=== PATIENT | female | born 1960 | race Caucasian/White ===

== ENCOUNTER → 2019-09-06 12:50 | Outpatient (CLI) | payer OTHER, SELFPAY ==
[2019-09-06 12:45] VITALS: BMI 25.6
--- NOTE | 2019-09-06 13:04 | RAD_ITS ---
STUDY: X-RAY - RIGHT HAND REASON FOR EXAM: Female, 59 years old. RIGHT HAND PAIN. PT STATES SHE IS UNABLE TO STRAIGHTEN OUT MIDDLE FINGER WITHOUT PAIN TECHNIQUE: 3 view(s) of the hand. COMPARISON: None. FINDINGS: Possible diffuse osteopenia otherwise normal radiocarpal articulation. Normal distal radioulnar joint. Normal visualized carpal bones. Normal carpal articulations Normal carpometacarpal articulation of the thumb. Normal second through fifth carpometacarpal joints. Normal metacarpi. Normal metacarpophalangeal joint of the thumb. Normal interphalangeal joint of the thumb. Normal proximal and distal phalanges of the thumb. Normal metacarpophalangeal joints of the second through fifth fingers. Mild narrowing of the distal interphalangeal joint second through fifth digits which may indicate early osteoarthritis Normal phalanges of the second through fifth fingers. The soft tissue structures are unremarkable. RAD/Hand Min 3 Views IMPRESSION: Possible early osteoarthritis as described otherwise no acute fracture or subluxation. Electronically Signed: Marii Hilario MD at 3:57 EST , Service support ,
== END ==
PROVIDERS: PCP Family Medicine; Referring Provider Physician Assistant; Visit Provider Physician Assistant
DX: M65.331 Trigger finger, right middle finger (principal)
CPT/HCPCS: 73130

== ENCOUNTER → 2020-05-01 09:35 | Outpatient (CLI) | payer OTHER, SELFPAY ==
[2019-09-06 12:45] VITALS: BMI 25.6
== END ==
PROVIDERS: PCP Family Medicine; Referring Provider Family Medicine; Visit Provider Family Medicine
DX: R05 Cough (principal)
CPT/HCPCS: 87635; C9803; U0003

== ENCOUNTER 2023-11-10 16:21 | Emergency (ER) | payer OTHER, SELFPAY ==
[2023-11-10 16:22] VITALS: BP 113/97; PULSE 99; RESP 20; TEMP 36.2; O2SAT 98; BMI 25.4
--- NOTE | 2023-11-10 17:01 | EX.ED.DYSGE1 ---
HPI History of Present Illness Chief Complaint: General Illness Narrative Narrative: 63-year-old female presenting with nausea, vomiting, epigastric pain. She also complains of earache and congestion. She has had a cough. Something this is all been going on for about 2 weeks. 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 She has not been able to hold stuff down and sometimes and other times been able to eat and drink. She has not checked her temperature because she does not have a thermometer. She denies chest pain or shortness of breath but does admit to cough again and congestion. Denies diarrhea. No black or bloody stools. No black or bloody emesis. Patient brought her friend with her who states that she is an alcoholic. The patient only admits to 1 cup of tequila per day. She states she cannot tell me how long she has been drinking this. She does report that she can quit when she wants and is quit several times without any withdrawal symptoms. No history of pancreatitis. She herself does not think she has pancreatitis or anything alcohol related she thinks she has something viral. [facility] Medical History HTN (hypertension) Hypothyroidism Home Medications aspirin 81 mg chewable tablet 81 mg PO DAILY@0800 05/21/16 [History Last Taken 06/26/16 06:00] hydrochlorothiazide 25 mg tablet 25 mg PO DAILY 05/21/16 [History Last Taken 05/21/16] levothyroxine 75 mcg tablet 75 mcg PO DAILY 05/21/16 [History Last Taken 05/21/16] metoprolol tartrate 25 mg tablet 12.5 mg PO BID 05/21/16 [History Last Taken 05/20/16] cholecalciferol (vitamin D3) 25 mcg (1,000 unit) chewable tablet 1,000 unit PO DAILY 06/21/16 [History Last Taken Unknown] omega-3 fatty acids 1,000 mg capsule (Fish Oil Concentrate) 1,000 mg PO DAILY 09/06/19 [History Last Taken Unknown] omeprazole 40 mg capsule,delayed release 40 mg PO BID #60 caps 11/10/23 [Rx Last Taken Unknown] ondansetron 4 mg disintegrating tablet 4 mg PO Q8H PRN PRN Nausea #20 tabs 11/10/23 [Rx Last Taken Unknown] Allergy/AdvReac Type Severity Reaction Status Date / Time amoxicillin [From Augmentin] Allergy Rash Verified 11/10/23 16:22 clavulanic acid Allergy Rash Verified 11/10/23 16:22 [From Augmentin] Sulfa (Sulfonamide Allergy Rash Verified 11/10/23 16:22 Antibiotics) Social History Smoking Status: Current every day smoker tobacco type: cigarettes ROS ROS ED Constitutional Constitutional ED: Reports chills; Denies fever(s) or sweats Eyes Eyes: Denies blurry vision or change in vision ENT ENT ED: Reports ear pain bilateral; Denies sore throat Cardiovascular Cardiovascular: Denies chest pain, palpitations or racing heartbeat Respiratory/Chest Respiratory/Chest: Reports cough; Denies dyspnea or sputum Gastrointestinal Gastrointestinal: Reports abdominal pain, nausea and vomiting; Denies constipation or diarrhea Genitourinary Genitourinary ED: Denies dysuria, hematuria or urinary frequency Musculoskeletal Musculoskeletal: Reports myalgias; Denies arthralgias or neck pain Integumentary Denies abscess, Abrasions or rash Neurologic Neurologic: Denies headache(s), paresthesias or weakness Psychiatric Psychiatric: Denies anxiety, depression, suicidal ideation or suicidal thoughts Endocrine Endocrinology: Denies polydipsia or polyuria EXAM Physical Exam Const Vital Signs: 11/10/23 16:22 11/10/23 17:41 Temperature 97.2 F L Temperature Source Temporal Pulse Rate 99 Respiratory Rate 20 H Respiratory Pattern Normal Blood Pressure 113/97 H Blood Pressure Mean 102 Pulse Ox 98 Oxygen Delivery Method Room Air Positive well nourished General Appearance ED: NAD; Negative for pallor HEENT Reports moist mucous membranes Eyes PERRL and EOMs intact bilaterally General Eye ED: Negative for pale conjunctiva Chest Wall inspection of chest normal and palpation of chest normal Resp normal respiratory effort and clear to auscultation bilaterally Cardio regular rate GI Palpation: tender epigastric Neuro oriented x3 and CN's II-XII intact bilaterally Motor Exam: strength 5/5 throughout Psych mental status grossly normal Skin no rashes or lesions noted General Skin Exam: Negative for jaundice or pallor MDM MDM MDM Narrative Medical decision making narrative: Patient presenting with nausea, vomiting. She states that this is an ongoing issue. She reports that she does drink daily but only about a cup of tequila. Differential includes alcohol abuse, gastritis, alcohol withdrawal, dehydration, electrolyte abnormalities, viral syndrome, pancreatitis. CBC was obtained to assess for white blood cell count, hemoglobin, platelets. BMP to assess renal function, electrolytes. LFTs to assess liver function. Lipase to assess for pancreatitis. Urinalysis to assess for UTI. COVID, influenza, RSV are obtained. Patient given IV fluids after IV line was established. Patient given Zofran, Toradol, GI cocktail. On reevaluation she is feeling better. Her lab work shows that she has a 7.1 white count. 13.1 hemoglobin. Platelets are normal. She does have normal renal function however potassium is slightly low at 3.0. LFTs show AST of 147, ALT 66, alkaline phosphatase 126 and lipase is 87 which is minimally elevated. I suspect this is due to alcohol use. Patient's EtOH is 270 today. I discussed this with her and this is likely more than a couple of tequila and she admitted that she does drink more. She does not want detox today and her sister is in the room and we discussed this at length. I did warn her that if the excessive alcohol abuse continues gastric issues and/or pancreatitis. She was willing to take some outpatient services paperwork. I did tell her she could return at any time for treatment of EtOH withdrawal and/or detox. Patient will be started on omeprazole for home. She is also given some Zofran. Return precautions discussed. Impression: 1. Alcohol abuse 2. Gastritis 3. Alcoholic hepatitis 4. Nausea/vomiting 5. Hypokalemia Lab Data Attestation: I reviewed the patient's lab results. Labs: Laboratory Results - last 24 hr 11/10/23 17:30 WBC 7.1 RBC 4.02 L Hgb 13.1 Hct 39.7 MCV 98.8 MCH 32.6 H MCHC 33.0 RDW Std Deviation 74.4 H RDW Coeff of Gucci 20.5 H Plt Count 187 MPV 11.4 Immature Gran % (Auto) 0.400 Neut % (Auto) 66.8 Lymph % (Auto) 22.9 [place] % (Auto) 6.7 Eos % (Auto) 2.2 Baso % (Auto) 1.0 Absolute Neuts (auto) 4.8 Absolute Lymphs (auto) 1.63 Nucleated RBC % 0 Differential Comment SCANNED Sodium 138 Potassium 3.0 L Chloride 102 Carbon Dioxide 28.0 Anion Gap 8 BUN 5 L Creatinine 0.61 Estim Creat Clear Calc 84.49 Est GFR (MDRD) Af Amer 127 Est GFR (MDRD) Non-Af 105 BUN/Creatinine Ratio 8.2 L Glucose 116 H Calcium 9.2 Total Bilirubin 0.40 Direct Bilirubin 0.20 AST 147 H ALT 66 H Alkaline Phosphatase 126 H Total Protein 8.4 H Albumin 4.3 Globulin 4.1 Lipase 87 H Urine Color Yellow Urine Clarity Sl. Cloudy Urine pH 7.0 Ur Specific [place] 1.005 Urine Protein Negative Urine Glucose (UA) Normal Urine Ketones Negative Urine Occult Blood Negative Urine Nitrite Negative Urine Bilirubin Negative Urine Urobilinogen Normal Ur Leukocyte Esterase Negative Urine RBC 0 SEEN Urine WBC 0 SEEN Ur Squamous Epith Cells 0-5 SEEN Urine Bacteria 0 SEEN Urine Mucus 0 SEEN Ethyl Alcohol 270.0 Discharge Plan Triage Chief Complaint: General Illness ED Provider: Uriel Harvey Dx/Rx/DC Orders Instructions: ED Alcohol Intoxication, ED Gastritis (Adult), ED Vomiting (Adult) Prescriptions: New omeprazole 40 mg capsule,delayed release(DR/EC) 40 mg PO BID Qty: 60 0RF ondansetron 4 mg tablet,disintegrating 4 mg PO Q8H PRN PRN (Reason: Nausea) Qty: 20 0RF No Action omega-3 fatty acids [Fish Oil Concentrate] 1,000 mg capsule 1,000 mg PO DAILY levothyroxine 75 MCG tablet 75 mcg PO DAILY Patient Comments: THYROID aspirin 81 MG tablet,chewable 81 mg PO DAILY@0800 hydrochlorothiazide 25 MG tablet 25 mg PO DAILY metoprolol tartrate 25 MG tablet 12.5 mg PO BID Patient Comments: BP cholecalciferol (vitamin D3) 1,000 UNIT tablet,chewable 1,000 unit PO DAILY Primary Care Provider: Shaniqua Jacob Referrals: Shaniqua Jacob DO [Primary Care Provider] - Disposition Disposition: Home, Self Care Discharge Date/Time: 11/10/23 18:46
[2023-11-10] MEDS: Mag Hydrox/Al Hydrox/Simeth 30 ML UDC PO (17:36)
[2023-11-10] MEDS: 0.9% Normal Saline (1000mL) 1,000 ML 1000 ML IV (17:36)
[2023-11-10] MEDS: Ondansetron 4 MG/2 ML Vial IV (17:36)
[2023-11-10] MEDS: Ketorolac 15 MG/ML Vial IV (17:36)
[2023-11-10 17:39] LABS: Bacteria 0 SEEN /hpf (None Seen); Mucous, Urine 0 SEEN /hpf (<or=2+); Red Blood Cells-Urine 0 SEEN /hpf (0-5); White Blood Cells 0 SEEN /hpf (0-5)
[2023-11-10 17:47] LABS: Color, Urine Yellow (Yellow); Glucose, Dipstick Normal (Normal); Ketone-Dipstick Negative (Negative); Leukocyte Esterase-Dipstick Negative /ul (Negative); Nitrite-Dipstick Negative (Negative); Occult Blood-Urine Negative /ul (Negative); Protein-Dipstick Negative (Negative); Specific Gravity, Urine 1.005 (1.002-1.030); Urine Bilirubin Dipstick Negative (Negative); Urine Clarity Sl. Cloudy (Clear); Urine Urobilinogen Normal (Normal)
[2023-11-10 17:56] LABS: Absolute Lymphocyte Count 1.63 X10^3/uL (0.83-4.51); Absolute Neutrophil Count 4.8 X10^3/uL (2.0-7.7); Basophil# 0.07 X10^3/uL; Eosinophil# 0.16 X10^3/uL; Eosinophils% 2.2 % (0-5); Hematocrit 39.7 % (37-47); Hemoglobin 13.1 g/dL (12.0-15.0); Lymphocyte # 1.63 X10^3/ul (0.83-4.51); Lymphocyte % 22.9 % (19-41); Mean Corpuscular Hgb 32.6 pg (27.0-32.0); Mean Corpuscular Volume 98.8 fL (81-99); Mean Platelet Vol. 11.4 fl (6.2-12.0); Monocyte# 0.48 X10^3/uL; Monocyte% 6.7 % (0-10); NRBC Flagged by Analyzer 0 % (0-5); Neutrophil # 4.76 X10^3/uL (2.7-7.7); Neutrophil % 66.8 % (47-70); POSITIVE MORPHOLOGY YES; Platelet Count 187 K/mm3 (150-450); RBC Distribution Width CV 20.5 % (11.6-14.6); RBC Distribution Width SD 74.4 fl (35.1-43.9); Red Blood Count 4.02 M/mm3 (4.2-5.4); White Blood Count 7.1 K/mm3 (4.4-11.0)
[2023-11-10 17:58] LABS: Squamous Epithelial Cells - UA 0-5 SEEN /hpf (5-10)
[2023-11-10 18:00] LABS: Differential Indicated SCAN CRITERIA MET
[2023-11-10 18:06] LABS: AST(SGOT) 147 U/L (15-37); Alanine Aminotransfer ALT/SGPT 66 U/L (13-56); Albumin, Serum 4.3 g/dL (3.2-5.0); Alkaline Phosphatase 126 U/L (45-117); Anion Gap 8 (5-15); BUN 5 mg/dL (7-18); BUN/Creat Ratio 8.2 RATIO (10-20); Calcium,Total 9.2 mg/dL (8.5-10.1); Chloride 102 mmol/L (98-107); Creatinine, Serum 0.61 mg/dL (0.55-1.02); EST Glomerular Filtration Rate 105 mL/min (>60); Est Glom Filt Rate - Afr Amer 127 mL/min (>60); Estimated Creatinine Clearance 84.49 ml/min; Globulin 4.1 g/dL (2.2-4.2); Glucose 116 mg/dL (74-106); Lipase 87 U/L (13-75); Protein, Total 8.4 g/dL (6.4-8.2); Sodium Level 138 mmol/L (136-145)
[2023-11-10 18:26] LABS: Differential Comment SCANNED
== END 2023-11-10 18:46 | disposition home or self-care (01) ==
PROVIDERS: Emergency Provider Student in an Organized Health Care Education/Training Program; PCP Family Medicine; Visit Provider Student in an Organized Health Care Education/Training Program
DX: F10.10 Alcohol abuse, uncomplicated (principal); K70.10 Alcoholic hepatitis without ascites; R11.2 Nausea with vomiting, unspecified; E87.6 Hypokalemia; F17.210 Nicotine dependence, cigarettes, uncomplicated; K29.70 Gastritis, unspecified, without bleeding; E03.9 Hypothyroidism, unspecified; Z79.899 Other long term (current) drug therapy; Y90.8 Blood alcohol level of 240 mg/100 ml or more
CPT/HCPCS: 80048; 80076; 80320; 81001; 83690; 85025; 87631; 96361; 96374; 96375; 99283; J7030; A4216; G0480; J2405

== ENCOUNTER 2023-11-11 09:01 | Inpatient (IN) | payer OTHER, SELFPAY ==
[2023-11-11] VITALS (8 sets, daily range): BP systolic 136–175; BP diastolic 80–111; PULSE 70–99; RESP 16–18; TEMP 36.2–36.8; O2SAT 95–99; BMI 28.9; BMI 25.3
--- NOTE | 2023-11-11 09:06 | EDS_ITS ---
HPI History of Present Illness Chief Complaint: Substance Abuse Informant: patient Onset/Context/Timing Onset: Today Context: Gradual Onset Timing: Continuous Associated Symptoms Associated Symptoms: Positive for fever*; Negative for vomiting*, diarrhea*, rash*, seizure, tremor, palpatations, change in mental status, suicidal ideation or homicidal ideation Narrative Narrative: Patient presents requesting detox from alcohol. Patient states she drinks approximately 1 cup of tequila per day. Patient states her last drink was approximately 2 AM today. Patient states she has been having some subjective fevers and chills that have been intermittent. Patient denies any nausea or vomiting. Patient denies any seizures or tremors. Patient denies any suicidal or homicidal ideations. Patient denies any prior detox. [facility] Medical History (Updated 11/11/23 @ 10:[address] Arden Balbuena, ) Alcohol abuse HTN (hypertension) Hypothyroidism Home Medications aspirin 81 mg chewable tablet 81 mg PO DAILY@0800 05/21/16 [History Last Taken 06/26/16 06:00] hydrochlorothiazide 25 mg tablet 25 mg PO DAILY 05/21/16 [History Last Taken 11/10/23] levothyroxine 75 mcg tablet 75 mcg PO DAILY thyroid 05/21/16 [History Last Taken 11/10/23] metoprolol tartrate 25 mg tablet 12.5 mg PO BID 05/21/16 [History Last Taken 11/10/23] cholecalciferol (vitamin D3) 25 mcg (1,000 unit) chewable tablet 1,000 unit PO DAILY 06/21/16 [History Last Taken Unknown] omega-3 fatty acids 1,000 mg capsule (Fish Oil Concentrate) 1,000 mg PO DAILY 09/06/19 [History Last Taken Unknown] albuterol sulfate 90 mcg/actuation aerosol inhaler 2 puff inhalation Q6H PRN shortness of breath or wheezing 11/11/23 [History Last Taken Unknown] omeprazole 40 mg capsule,delayed release 40 mg PO DAILY 11/11/23 [History Last Taken Unknown] Allergy/AdvReac Type Severity Reaction Status Date / Time amoxicillin [From Augmentin] Allergy Rash Verified 11/11/23 09:05 clavulanic acid Allergy Rash Verified 11/11/23 09:05 [From Augmentin] Sulfa (Sulfonamide Allergy Rash Verified 11/11/23 09:05 Antibiotics) Surgical History (Updated 11/11/23 @ 09:[address] Arden Balbuena DO) Hx of partial thyroidectomy Social History Smoking Status: Current every day smoker tobacco type: cigarettes ROS ROS ED Constitutional Constitutional ED: Reports chills, fever(s) and subjective Eyes Eyes: Denies blurry vision or change in vision ENT ENT ED: Reports rhinorrhea and sore throat Cardiovascular Cardiovascular: Denies chest pain or palpitations Respiratory/Chest Respiratory/Chest: Reports cough; Denies dyspnea Gastrointestinal Gastrointestinal: Denies nausea or vomiting Genitourinary Genitourinary ED: Denies dysuria or hematuria Musculoskeletal Musculoskeletal: Denies back pain or neck pain Integumentary Denies abscess or rash Neurologic Neurologic: Reports headache(s); Denies weakness Allergic/Immunologic Allergic/Immunologic ED: Denies mouth swelling or urticaria EXAM Physical Exam Const Vital Signs: 11/11/23 09:02 11/11/23 10:12 11/11/23 10:38 Temperature 98.1 F 98.3 F 97.1 F L Temperature Source Temporal Oral Pulse Rate 99 76 76 Respiratory Rate 16 16 16 Blood Pressure 175/111 H 136/82 H 140/80 H Blood Pressure Mean 132 100 100 Pulse Ox 97 96 95 Oxygen Delivery Method Room Air Room Air Positive well nourished and well developed General Appearance ED: well developed and NAD HEENT Reports moist mucous membranes Neck supple and no JVD Resp normal respiratory effort and clear to auscultation bilaterally Cardio regular rate and regular rhythm GI soft to palpation and non-distended Palpation: tender epigastric, LLQ, RLQ, LUQ, RUQ, periumbilical and suprapubic and hepatomegaly; Negative for guarding Neuro oriented x3, CN's II-XII intact bilaterally and no sensory deficits noted Reyna Coma Scale: document GCS findings Spontaneous Obeys Commands Oriented 15 Sensorium / Orientation: alert Speech: speech normal Motor Exam: strength 5/5 throughout Psych mental status grossly normal and thought process normal MDM MDM MDM Narrative Medical decision making narrative: Medical screening labs will be obtained. CBC will be obtained to assess for leukocytosis and anemia. Comprehensive metabolic profile will be obtained to assess for hepatic function, renal function, and electrolyte abnormality. Lipase will be obtained to assess for pancreatitis. Serum alcohol level will be obtained to assess for alcohol intoxication. Urine tox screen will be obtained to assess for substance abuse. Lab Data Attestation: I reviewed the patient's lab results. Lab results narrative: CBC was reviewed and was essentially within normal limits. Comprehensive metabolic profile was reviewed. Potassium was slightly low at 3.3. AST was slightly elevated at 166 and ALT was slightly elevated at 65. Lipase was reviewed and was normal at 55. Urine tox screen was reviewed and was negative. Serum alcohol level was reviewed and was elevated at 210. Labs: Laboratory Results - last 24 hr 11/11/23 11/11/23 09:20 09:30 WBC 7.3 RBC 3.68 L Hgb 12.0 Hct 36.6 L MCV 99.5 H MCH 32.6 H MCHC 32.8 RDW Std Deviation 74.3 H RDW Coeff of Gucci 20.4 H Plt Count 169 MPV 11.0 Immature Gran % (Auto) 0.300 Neut % (Auto) 72.8 H Lymph % (Auto) 17.5 L [place] % (Auto) 6.4 Eos % (Auto) 2.0 Baso % (Auto) 1.0 Absolute Neuts (auto) 5.3 Absolute Lymphs (auto) 1.28 Nucleated RBC % 0 Differential Comment SCANNED Anisocytosis 2+ Microcytosis 1+ Macrocytosis 1+ Sodium 139 Potassium 3.3 L Chloride 106 Carbon Dioxide 24.0 Anion Gap 9 BUN 3 L Creatinine 0.54 L Estim Creat Clear Calc 101.43 Est GFR (MDRD) Af Amer 147 Est GFR (MDRD) Non-Af 121 BUN/Creatinine Ratio 5.5 L Glucose 96 Calcium 8.8 Total Bilirubin 0.60 AST 166 H ALT 65 H Alkaline Phosphatase 104 Total Protein 7.6 Albumin 4.0 Globulin 3.6 Albumin/Globulin Ratio 1.1 Lipase 55 Urine Opiates Screen NEGATIVE Urine Methadone Screen NEGATIVE Ur Barbiturates Screen NEGATIVE Ur Phencyclidine Scrn NEGATIVE Ur Amphetamines Screen NEGATIVE MDMA (Ecstasy) Screen NEGATIVE U Benzodiazepines Scrn NEGATIVE Urine Cocaine Screen NEGATIVE U Cannabinoids Screen NEGATIVE Ur Drug Screen Comment Ethyl Alcohol 210.0 Management Discussion w/another healthcare provider: Hospitalist Treatment and Re-Evaluation Narrative: IV line was established. Case was discussed with the hospitalist. She will admit the patient to her service. Patient understood and was agreeable with the plan. All questions were answered. Discharge Plan Triage Chief Complaint: Substance Abuse ED Provider: Arden Balbuena Dx/Rx/DC Orders Clinical Impression: Desire for detoxification, Alcohol withdrawal Prescriptions: No Action omega-3 fatty acids [Fish Oil Concentrate] 1,000 mg capsule 1,000 mg PO DAILY levothyroxine 75 MCG tablet 75 mcg PO DAILY aspirin 81 MG tablet,chewable 81 mg PO DAILY@0800 Patient Comments: pt forgets to take hydrochlorothiazide 25 MG tablet 25 mg PO DAILY metoprolol tartrate 25 MG tablet 12.5 mg PO BID cholecalciferol (vitamin D3) 1,000 UNIT tablet,chewable 1,000 unit PO DAILY albuterol sulfate 90 mcg/actuation HFA aerosol inhaler 2 puff INHALATION Q6H PRN (Reason: shortness of breath or wheezing) omeprazole 40 mg capsule,delayed release(DR/EC) 40 mg PO DAILY Patient Comments: pt takes occasionally Primary Care Provider: Shaniqua Jacob Referrals: Shaniqua Jacob DO [Primary Care Provider] - Disposition Disposition: Acute Care Hospital [facility]
[2023-11-11 09:33] LABS: Absolute Lymphocyte Count 1.28 X10^3/uL (0.83-4.51); Absolute Neutrophil Count 5.3 X10^3/uL (2.0-7.7); Basophil# 0.07 X10^3/uL; Eosinophil# 0.15 X10^3/uL; Hematocrit 36.6 % (37-47); Lymphocyte # 1.28 X10^3/ul (0.83-4.51); Lymphocyte % 17.5 % (19-41); Mean Corp Hgb Conc 32.8 g/dL (32-36); Mean Corpuscular Hgb 32.6 pg (27.0-32.0); Mean Corpuscular Volume 99.5 fL (81-99); Monocyte# 0.47 X10^3/uL; Monocyte% 6.4 % (0-10); NRBC Flagged by Analyzer 0 % (0-5); Neutrophil # 5.34 X10^3/uL (2.7-7.7); Neutrophil % 72.8 % (47-70); POSITIVE MORPHOLOGY YES; Platelet Count 169 K/mm3 (150-450); RBC Distribution Width CV 20.4 % (11.6-14.6); RBC Distribution Width SD 74.3 fl (35.1-43.9); Red Blood Count 3.68 M/mm3 (4.2-5.4); White Blood Count 7.3 K/mm3 (4.4-11.0)
[2023-11-11 09:51] LABS: ALB/GLOB Ratio 1.1 RATIO (0.9-2.4); AST(SGOT) 166 U/L (15-37); Alanine Aminotransfer ALT/SGPT 65 U/L (13-56); Alkaline Phosphatase 104 U/L (45-117); Anion Gap 9 (5-15); BUN 3 mg/dL (7-18); BUN/Creat Ratio 5.5 RATIO (10-20); Calcium,Total 8.8 mg/dL (8.5-10.1); Chloride 106 mmol/L (98-107); Creatinine, Serum 0.54 mg/dL (0.55-1.02); EST Glomerular Filtration Rate 121 mL/min (>60); Est Glom Filt Rate - Afr Amer 147 mL/min (>60); Estimated Creatinine Clearance 101.43 ml/min; Globulin 3.6 g/dL (2.2-4.2); Glucose 96 mg/dL (74-106); Lipase 55 U/L (13-75); Potassium 3.3 mmol/L (3.5-5.1); Protein, Total 7.6 g/dL (6.4-8.2); Sodium Level 139 mmol/L (136-145)
[2023-11-11 10:21] LABS: Amphetamine Urine VISTA NEGATIVE (<1000 ng/mL); Barbiturate Urine VISTA NEGATIVE (< 200 ng/mL); Benzodiazepine Urine VISTA NEGATIVE (< 200 ng/mL); Cocaine Urine VISTA NEGATIVE (< 300 ng/mL); Ecstacy Urine VISTA NEGATIVE (< 500 ng/mL); Methadone Urine VISTA NEGATIVE (< 300 ng/mL); PCP Urine VISTA NEGATIVE (< 25 ng/mL); THC Urine VISTA NEGATIVE (< 50 ng/mL); Vista UDS pH Range 6
[2023-11-11 10:28] LABS: Differential Indicated SCAN CRITERIA MET
[2023-11-11 10:30] LABS: Anisocytosis 2+; Differential Comment SCANNED; Macrocytosis 1+; Microcytosis 1+
--- NOTE | 2023-11-11 10:40 | PCM.HP.STD ---
HPI - General General Date of Admission: 11/11/23 Date of Service: 11/11/23 Chief Complaint: acute alcohol withdrawal HPI Narrative PHILOMENA CONNOLLY, is a 63 F with a PMH as outlined who presents via the ED on 11/11/2023 with a complaint of acute alcohol withdrawal. She drinks a cup of tequila daily, with her last drink being ~ 2am on the day of presentation. She denied any shakes, tremors nausea, vomiting or any other symptoms. She has never gone through detox before. Review of systems was otherwise negative. Vitals in the ED were BP of 140/80. WA of 76, RR of 16 and oxygen sats of 95% n room air. Temp was 97.1F. CBC showed hb of 12, wbc of 7.3 and platelets of 169. Chemistry showed potassium of 3.3 and Cr was 0.54. AST and ALT were mildly elevated. Urine tox was negative, and serum alcohol level was 210. She is being admitted to be managed for acute alcohol withdrawal. [facility] Medical History Alcohol abuse HTN (hypertension) Hypothyroidism Home Medications aspirin 81 mg chewable tablet 81 mg PO DAILY@0800 05/21/16 [History Last Taken 06/26/16 06:00] hydrochlorothiazide 25 mg tablet 25 mg PO DAILY BP 05/21/16 [History Last Taken 11/10/23 06:00] levothyroxine 75 mcg tablet 75 mcg PO DAILY thyroid 05/21/16 [History Last Taken 11/10/23 06:00] metoprolol tartrate 25 mg tablet 12.5 mg PO BID Heart 05/21/16 [History Last Taken 11/10/23 19:00] cholecalciferol (vitamin D3) 25 mcg (1,000 unit) chewable tablet 1,000 unit PO DAILY 06/21/16 [History Last Taken Unknown] omega-3 fatty acids 1,000 mg capsule (Fish Oil Concentrate) 1,000 mg PO DAILY 09/06/19 [History Last Taken Unknown] albuterol sulfate 90 mcg/actuation aerosol inhaler 2 puff inhalation Q6H PRN shortness of breath or wheezing 11/11/23 [History Last Taken Unknown] omeprazole 40 mg capsule,delayed release 40 mg PO DAILY 11/11/23 [History Last Taken Unknown] Allergy/AdvReac Type Severity Reaction Status Date / Time amoxicillin [From Augmentin] Allergy Rash Verified 11/11/23 09:05 clavulanic acid Allergy Rash Verified 11/11/23 09:05 [From Augmentin] Sulfa (Sulfonamide Allergy Rash Verified 11/11/23 09:05 Antibiotics) Surgical History Hx of partial thyroidectomy Social History (Updated 11/11/23 @ 11:41 by Buffy Lopez) household members: family housing: house Smoking Status: Current every day smoker tobacco type: cigarettes ROS Review of Systems ROS Unobtainable: Denies due to encephalopathy Constitutional Constitutional: Reports malaise and weakness; Denies anorexia, change in weight, chills, fatigue or fever(s) Eyes Eyes: Denies change in vision ENT HEENT: Denies dysphagia, headache(s), sore throat or throat swelling Cardiovascular Cardiovascular: Denies chest pain, edema, orthopnea, palpitations, paroxysmal nocturnal dyspnea or syncope Respiratory/Chest Respiratory/Chest: Denies cough, shortness of breath at rest or shortness of breath with exertion Gastrointestinal Gastrointestinal: Denies abdominal pain, nausea or vomiting Genitourinary Genitourinary: Denies dysuria Musculoskeletal Musculoskeletal: Denies joint pain Integumentary Integumentary: Denies dry skin Neurologic Neurologic: Denies confusion, dizziness, focal weakness, headache(s), lack of coordination or numbness Psychiatric Psychiatric: Denies anxiety or depression Endocrine Endocrinology: Denies change in body appearance Vital Signs Vital Signs Vital Signs: 11/11/23 09:02 11/11/23 10:12 11/11/23 10:38 Temperature 98.1 F 98.3 F 97.1 F L Temperature Source Temporal Oral Pulse Rate 99 76 76 Respiratory Rate 16 16 16 Blood Pressure 175/111 H 136/82 H 140/80 H Blood Pressure Mean 132 100 100 Pulse Ox 97 96 95 Oxygen Delivery Method Room Air Room Air Weight Weight: 158 lb Body Mass Index (BMI) 28.9 Physical Exam Const alert, oriented x3 and no apparent distress General Appearance: cooperative HEENT normocephalic, head/scalp atraumatic, moist oral mucous membranes and oropharynx normal Eyes PERRL and EOMs intact bilaterally Neck no lymphadenopathy and supple Lymph Lymphatic: no lymphadenopathy noted and no lymphedema noted Resp normal respiratory effort, normal air movement and clear to auscultation bilaterally Cardio regular rate, regular rhythm, S1 normal heart sound, S2 normal heart sound and no murmurs GI normal to inspection, nondistended, normoactive bowel sounds, soft to palpation, non-tender and non-distended Extremity normal capillary refill, no clubbing, cyanosis or edema and no calf tenderness General Extremity: no tenderness to palpation of joints or extremities Skin General Skin Exam: no breakdown and turgor normal Neuro CN's II-XII intact bilaterally, no focal motor deficits, no sensory deficits noted and deep tendon reflexes 2+ bilaterally Motor Exam: strength 5/5 throughout and general weakness Psych thought process normal Mood & Affect: anxious Results Lab / Micro Data 11/11/23 09:20 11/11/23 09:20 Labs: Laboratory Results - last 24 hr 11/11/23 09:20: WBC 7.3, RBC 3.68 L, Hgb 12.0, Hct 36.6 L, MCV 99.5 H, MCH 32.6 H, MCHC 32.8, RDW Std Deviation 74.3 H, RDW Coeff of Gucci 20.4 H, Plt Count 169, MPV 11.0, Immature Gran % (Auto) 0.300, Neut % (Auto) 72.8 H, Lymph % (Auto) 17.5 L, [place] % (Auto) 6.4, Eos % (Auto) 2.0, Baso % (Auto) 1.0, Absolute Neuts (auto) 5.3, Absolute Lymphs (auto) 1.28, Nucleated RBC % 0, Differential Comment SCANNED, Anisocytosis 2+, Microcytosis 1+, Macrocytosis 1+, Sodium 139, Potassium 3.3 L, Chloride 106, Carbon Dioxide 24.0, Anion Gap 9, BUN 3 L, Creatinine 0.54 L, Estim Creat Clear Calc 101.43, Est GFR (MDRD) Af Amer 147, Est GFR (MDRD) Non-Af 121, BUN/Creatinine Ratio 5.5 L, Glucose 96, Calcium 8.8, Total Bilirubin 0.60, AST 166 H, ALT 65 H, Alkaline Phosphatase 104, Total Protein 7.6, Albumin 4.0, Globulin 3.6, Albumin/Globulin Ratio 1.1, Lipase 55, Ethyl Alcohol 210.0 11/11/23 09:30: Urine Opiates Screen NEGATIVE, Urine Methadone Screen NEGATIVE, Ur Barbiturates Screen NEGATIVE, Ur Phencyclidine Scrn NEGATIVE, Ur Amphetamines Screen NEGATIVE, MDMA (Ecstasy) Screen NEGATIVE, U Benzodiazepines Scrn NEGATIVE, Urine Cocaine Screen NEGATIVE, U Cannabinoids Screen NEGATIVE, Ur Drug Screen Comment Assessment & Plan Assessment/Plan (1) Alcohol withdrawal: PLAN: Plan #Acute alcohol withdrawal admit to med surg start on alcohol withdrawal protocol with phenobarbital Monitor CIWA score. On thiamine, folic acid and Multi-Chela. Adjunctive meds for symptomatic relief. #Nicotine dependence: Counseled to quit. Nicotine patch 21 mg daily. #Hypertension: On hydrochlorothiazide and metoprolol #Hypothyroidism: On Synthroid DVT prophylaxis: low risk, encourage ambulation Charges/Coding Visit Charges Inpatient E&M: 45358 Init Hosp L3
--- NOTE | 2023-11-11 11:02 | NURSING ---
MED SURG KORAM ALCOHOL WITHDRAWAL, DESIRE FOR DETOX
[2023-11-11] MEDS: Ondansetron 4 MG/2 ML Vial IV (12:03)
[2023-11-11] MEDS: Dicyclomine 10 MG Capsule 20 MG PO ×2 (12:08→18:16)
[2023-11-11] MEDS: Phenobarbital 32.4 MG Tablet 64.8 MG PO ×4 (12:10→22:42)
[2023-11-11] MEDS: Metoprolol Tartrate 25 MG Tablet 12.5 MG PO (22:42)
[2023-11-12] VITALS (10 sets, daily range): BP systolic 125–163; BP diastolic 91–112; PULSE 57–77; RESP 12–18; TEMP 36.1–36.4; O2SAT 95–98
[2023-11-12] MEDS: Dicyclomine 10 MG Capsule 20 MG PO (02:57)
[2023-11-12] MEDS: Phenobarbital 32.4 MG Tablet 64.8 MG PO ×6 (02:57→23:44)
[2023-11-12] MEDS: Levothyroxine 75 MCG Tablet PO (06:38)
[2023-11-12] MEDS: hydroCHLOROthiazide 25 MG Tablet PO (09:16)
[2023-11-12] MEDS: Omega-3 Acid Ethyl Esters 1 GM Capsule PO (09:16)
[2023-11-12] MEDS: Metoprolol Tartrate 25 MG Tablet 12.5 MG PO ×2 (09:16→21:20)
[2023-11-12] MEDS: Aspirin 81 MG TAB.CHEW PO (09:16)
[2023-11-12] MEDS: Folic Acid 1 MG Tablet PO (09:16)
[2023-11-12] MEDS: Thiamine Hydrochloride 100 MG Tablet PO (09:16)
[2023-11-12] MEDS: Pantoprazole Sodium 40 MG Tablet PO (09:17)
[2023-11-12] MEDS: Ondansetron 4 MG/2 ML Vial IV (09:20)
[2023-11-12] MEDS: 0.9% Saline Lock 10 ML Syringe IV (09:20)
--- NOTE | 2023-11-12 09:36 | PN_ITS ---
Subjective Subjective Patient seen and examined. She had no active complaints. She denied any fever, chills, cough, chest pain, palpitations, dizziness, nausea or any other symptoms. Review of systems is otherwise negative. She has remained hemodynamically stable. Objective Data Objective Data Vital Signs: Vital Signs Temp Pulse Resp BP Pulse Ox O2 Del Method 97.6 F L 61 12 145/91 H 98 Room Air 11/12/23 09:13 11/12/23 09:16 11/12/23 09:13 11/12/23 09:13 11/12/23 09:13 11/12/23 09:13 Oxygen Delivery Method Room Air Weight: 138 lb 10.732 oz Body Mass Index (BMI) 25.3 Lab / Micro Data 11/11/23 09:20 11/11/23 09:20 Labs: Laboratory Results - last 24 hr 11/11/23 09:20: WBC 7.3, RBC 3.68 L, Hgb 12.0, Hct 36.6 L, MCV 99.5 H, MCH 32.6 H, MCHC 32.8, RDW Std Deviation 74.3 H, RDW Coeff of Gucci 20.4 H, Plt Count 169, MPV 11.0, Immature Gran % (Auto) 0.300, Neut % (Auto) 72.8 H, Lymph % (Auto) 17.5 L, Mcculloch % (Auto) 6.4, Eos % (Auto) 2.0, Baso % (Auto) 1.0, Absolute Neuts (auto) 5.3, Absolute Lymphs (auto) 1.28, Nucleated RBC % 0, Differential Comment SCANNED, Anisocytosis 2+, Microcytosis 1+, Macrocytosis 1+, Sodium 139, Potassium 3.3 L, Chloride 106, Carbon Dioxide 24.0, Anion Gap 9, BUN 3 L, Cre atinine 0.54 L, Estim Creat Clear Calc 101.43, Est GFR (MDRD) Af Amer 147, Est GFR (MDRD) Non-Af 121, BUN/Creatinine Ratio 5.5 L, Glucose 96, Calcium 8.8, Total Bilirubin 0.60, AST 166 H, ALT 65 H, Alkaline Phosphatase 104, Total Protein 7.6, Albumin 4.0, Globulin 3.6, Albumin/Globulin Ratio 1.1, Lipase 55, Ethyl Alcohol 210.0 11/11/23 09:30: Urine Opiates Screen NEGATIVE, Urine Methadone Screen NEGATIVE, Ur Barbiturates Screen NEGATIVE, Ur Phencyclidine Scrn NEGATIVE, Ur Amphetamines Screen NEGATIVE, MDMA (Ecstasy) Screen NEGATIVE, U Benzodiazepines Scrn NEGATIVE, Urine Cocaine Screen NEGATIVE, U Cannabinoids Screen NEGATIVE, Ur Drug Screen Comment Physical Exam Const alert, oriented x3 and no apparent distress General Appearance: cooperative HEENT normocephalic, head/scalp atraumatic, moist oral mucous membranes and oropharynx normal Eyes PERRL and EOMs intact bilaterally Neck no lymphadenopathy and supple Lymph Lymphatic: no lymphadenopathy noted and no lymphedema noted Resp normal respiratory effort, normal air movement and clear to auscultation bilaterally Cardio regular rate, regular rhythm, S1 normal heart sound, S2 normal heart sound and no murmurs GI normal to inspection, nondistended, normoactive bowel sounds, soft to palpation, non-tender and non-distended Extremity normal capillary refill, no clubbing, cyanosis or edema and no calf tenderness General Extremity: no tenderness to palpation of joints or extremities Skin General Skin Exam: no breakdown and turgor normal Neuro CN's II-XII intact bilaterally, no focal motor deficits, no sensory deficits noted and deep tendon reflexes 2+ bilaterally Motor Exam: strength 5/5 throughout and general weakness Psych thought process normal Assessment & Plan Assessment/Plan (1) Alcohol withdrawal: PLAN: Plan #Acute alcohol withdrawal * admit to med surg * start on alcohol withdrawal protocol with phenobarbital * Monitor CIWA score. * On thiamine, folic acid and Multi-Chela. * Adjunctive meds for symptomatic relief. * #Nicotine dependence: Counseled to quit. Nicotine patch 21 mg daily. #Hypertension: On hydrochlorothiazide and metoprolol #Hypothyroidism: On Synthroid DVT prophylaxis: low risk, encourage ambulation Charges/Coding Visit Charges Inpatient E&M: 78232 Subs Hosp L2
--- NOTE | 2023-11-12 11:49 | ADDICTION ---
clinician met with patient to discuss her hx of alcohol use and what brought her to ER. Patient reported that her sister brought her to ER due to her concerns with her alcohol use. client presented somewhat guarded and ambivalent towards change. she reported she is somewhat open to counseling services if I even need that. clinician briefly discussed local tx options ([facility]). [facility] staff will follow up with her tomorrow, 11/13/23, to further discuss tx and a discharge plan.
[2023-11-13] VITALS (7 sets, daily range): BP systolic 118–137; BP diastolic 78–99; PULSE 62–82; RESP 12–18; TEMP 36.3–36.4; O2SAT 97–100
[2023-11-13] MEDS: Phenobarbital 32.4 MG Tablet 64.8 MG PO ×5 (03:18→19:52)
[2023-11-13] MEDS: Levothyroxine 75 MCG Tablet PO (05:51)
[2023-11-13] MEDS: hydrOXYzine PAM 25 MG Capsule 50 MG PO ×3 (08:14→21:23)
[2023-11-13] MEDS: Thiamine Hydrochloride 100 MG Tablet PO (08:15)
[2023-11-13] MEDS: Pantoprazole Sodium 40 MG Tablet PO (08:15)
[2023-11-13] MEDS: Folic Acid 1 MG Tablet PO (08:15)
[2023-11-13] MEDS: Omega-3 Acid Ethyl Esters 1 GM Capsule PO (08:15)
[2023-11-13] MEDS: hydroCHLOROthiazide 25 MG Tablet PO (08:15)
--- NOTE | 2023-11-13 08:15 | NURSING ---
Pt feeling like she wants to go home. Provided reassurance that she is doing the right thing and it is in her best interest to remain here and complete the phenobarbital taper. Gave medications to help alleviate anxiety. Advised to notify this nurse if those feelings continue after medication. Pt is tearful and missing family.
[2023-11-13] MEDS: Aspirin 81 MG TAB.CHEW PO (08:16)
[2023-11-13] MEDS: Metoprolol Tartrate 25 MG Tablet 12.5 MG PO ×2 (08:17→21:22)
--- NOTE | 2023-11-13 12:31 | PN_ITS ---
Subjective Subjective Patient seen and examined. She has no active complaints. Review of systems is otherwise negative. She has remained hemodynamically stable. Objective Data Objective Data Vital Signs: Vital Signs Temp Pulse Resp BP Pulse Ox O2 Del Method 97.6 F L 67 14 131/86 H 97 Room Air 11/13/23 08:40 11/13/23 08:40 11/13/23 08:40 11/13/23 08:40 11/13/23 08:40 11/13/23 08:40 Oxygen Delivery Method Room Air Weight: 138 lb 10.732 oz Body Mass Index (BMI) 25.3 Intake & Output: Intake and Output for Last 24 Hours 11/11/23 11/12/23 11/13/23 23:59 23:59 23:59 Intake Total 770 / 770 220 / 220 Balance 770 / 770 220 / 220 Lab / Micro Data 11/11/23 09:20 11/11/23 09:20 Physical Exam Const alert, oriented x3 and no apparent distress General Appearance: cooperative and well developed HEENT normocephalic, head/scalp atraumatic, moist oral mucous membranes and oropharynx normal Eyes PERRL and EOMs intact bilaterally Neck no lymphadenopathy and supple Lymph Lymphatic: no lymphadenopathy noted and no lymphedema noted Resp normal respiratory effort, normal air movement and clear to auscultation bilat erally Cardio regular rate, regular rhythm, S1 normal heart sound, S2 normal heart sound and no murmurs GI normal to inspection, nondistended, normoactive bowel sounds, soft to palpation, non-tender and non-distended Extremity normal capillary refill, no clubbing, cyanosis or edema and no calf tenderness General Extremity: no tenderness to palpation of joints or extremities Skin General Skin Exam: no breakdown and turgor normal Neuro CN's II-XII intact bilaterally, no focal motor deficits, no sensory deficits noted and deep tendon reflexes 2+ bilaterally Motor Exam: strength 5/5 throughout and general weakness Psych thought process normal and cooperative Appearance: appropriate Assessment & Plan Assessment/Plan (1) Alcohol withdrawal: PLAN: Plan #Acute alcohol withdrawal * on alcohol withdrawal protocol with phenobarbital * Monitor CIWA score. * On thiamine, folic acid and Multi-Chela. * Adjunctive meds for symptomatic relief. * #Nicotine dependence: Counseled to quit. Nicotine patch 21 mg daily. #Hypertension: On hydrochlorothiazide and metoprolol #Hypothyroidism: On Synthroid DVT prophylaxis: low risk, encourage ambulation Charges/Coding Visit Charges Inpatient E&M: 98135 Subs Hosp L2
[2023-11-13] MEDS: 0.9% Saline Lock 10 ML Syringe IV (21:58)
[2023-11-13] MEDS: traZODone 100 MG Tablet PO (21:58)
[2023-11-13] MEDS: Ondansetron 4 MG/2 ML Vial IV (21:58)
[2023-11-13] MEDS: Gabapentin 300 MG Capsule PO (21:58)
[2023-11-14] MEDS: Phenobarbital 32.4 MG Tablet 64.8 MG PO ×3 (01:28→12:27)
[2023-11-14 03:17] VITALS: BP 113/77; PULSE 64; RESP 16; TEMP 36.5; O2SAT 98
[2023-11-14] MEDS: Levothyroxine 75 MCG Tablet PO (05:56)
[2023-11-14] MEDS: hydrOXYzine PAM 25 MG Capsule 50 MG PO (08:03)
[2023-11-14] MEDS: hydroCHLOROthiazide 25 MG Tablet PO (08:04)
[2023-11-14] MEDS: Folic Acid 1 MG Tablet PO (08:04)
[2023-11-14] MEDS: Aspirin 81 MG TAB.CHEW PO (08:04)
[2023-11-14] MEDS: Pantoprazole Sodium 40 MG Tablet PO (08:04)
[2023-11-14] MEDS: Omega-3 Acid Ethyl Esters 1 GM Capsule PO (08:04)
[2023-11-14] MEDS: Thiamine Hydrochloride 100 MG Tablet PO (08:04)
[2023-11-14 08:05] VITALS: PULSE 71
[2023-11-14] MEDS: Metoprolol Tartrate 25 MG Tablet 12.5 MG PO (08:05)
[2023-11-14] MEDS: Ondansetron 8 MG Tablet PO (08:11)
[2023-11-14 09:00] VITALS: BP 110/79; PULSE 70; RESP 16; TEMP 36.4; O2SAT 99
--- NOTE | 2023-11-14 09:41 | DCINST_ITS ---
Discharge Instructions Diet Discharge Diet: Low fat / Low cholesterol Activity Discharge Activity: Return to Normal Activity Weight Bearing Status: Weight bearing as tolerated Dressing / Incision Call your doctor if you observe: Fever of 101 or Higher, Shortness of breath, Dizziness, Swelling in the ankles and Chest pain Follow Up Care Test Results: Test results from this visit will be discussed in further detail at your follow- up appointment, if applicable. Discharge Plan Admission Admit Date/Time: 11/11/23 10:50 Primary Reason for Your Visit: acute alcohol withdrawal Attending Provider: Mary Major Primary Care Provider: Shaniqua Jacob Instructions Patient Instructions: Alcoholism: Getting Help, Alcohol Addiction Discharge Orders/Prescriptions Prescriptions: Continued omega-3 fatty acids [Fish Oil Concentrate] 1,000 mg capsule 1,000 mg PO DAILY levothyroxine 75 MCG tablet 75 mcg PO DAILY aspirin 81 MG tablet,chewable 81 mg PO DAILY@0800 Patient Comments: pt forgets to take hydrochlorothiazide 25 MG tablet 25 mg PO DAILY metoprolol tartrate 25 MG tablet 12.5 mg PO BID cholecalciferol (vitamin D3) 1,000 UNIT tablet,chewable 1,000 unit PO DAILY albuterol sulfate 90 mcg/actuation HFA aerosol inhaler 2 puff INHALATION Q6H PRN (Reason: shortness of breath or wheezing) omeprazole 40 mg capsule,delayed release(DR/EC) 40 mg PO DAILY Patient Comments: pt takes occasionally Referrals / Follow Up: Shaniqua Jacob DO [Primary Care Provider] - Within 2 Weeks Disposition Disposition (needs filled in before D/C Order can be placed): Home, Self Care
--- NOTE | 2023-11-14 09:42 | PCM.DC.SUM ---
Providers Date of Admission: 11/11/23 Date of Discharge: 11/14/23 Primary Care Physician: Dr. Shaniqua Jacob, DO Reason For Visit: ACUTE ALCOHOL WITHDRAWAL Diagnosis Discharge Diagnosis (1) Alcohol withdrawal: Status: Acute Code(s): F10.939 - Alcohol use, unspecified with withdrawal, unspecified Plan #Acute alcohol withdrawal on alcohol withdrawal protocol with phenobarbital Monitor CIWA score. On thiamine, folic acid and Multi-Chela. Adjunctive meds for symptomatic relief. #Nicotine dependence: Counseled to quit. Nicotine patch 21 mg daily. #Hypertension: On hydrochlorothiazide and metoprolol #Hypothyroidism: On Synthroid DVT prophylaxis: low risk, encourage ambulation Medications at Discharge Home Medications aspirin 81 mg chewable tablet 81 mg PO DAILY@0800 heart health 05/21/16 hydrochlorothiazide 25 mg tablet 25 mg PO DAILY BP 05/21/16 levothyroxine 75 mcg tablet 75 mcg PO DAILY thyroid 05/21/16 metoprolol tartrate 25 mg tablet 12.5 mg PO BID BP/heart 05/21/16 cholecalciferol (vitamin D3) 25 mcg (1,000 unit) chewable tablet 1,000 unit PO DAILY supplement 06/21/16 omega-3 fatty acids 1,000 mg capsule (Fish Oil Concentrate) 1,000 mg PO DAILY supplement 09/06/19 albuterol sulfate 90 mcg/actuation aerosol inhaler 2 puff inhalation Q6H PRN shortness of breath or wheezing 11/11/23 omeprazole 40 mg capsule,delayed release 40 mg PO DAILY reflux 11/11/23 Hospital Course Operations None Procedures None Summary of Care Provided Minutes Spent on Discharge: 45 Physical Exam Narrative PHILOMENA CONNOLLY, is a 63 F with a PMH as outlined who presents via the ED on 11/11/2023 with a complaint of acute alcohol withdrawal. She drinks a cup of tequila daily, with her last drink being ~ 2am on the day of presentation. She denied any shakes, tremors nausea, vomiting or any other symptoms. She has never gone through detox before. Review of systems was otherwise negative. Vitals in the ED were BP of 140/80. [place] of 76, RR of 16 and oxygen sats of 95% n room air. Temp was 97.1F. CBC showed hb of 12, wbc of 7.3 and platelets of 169. Chemistry showed potassium of 3.3 and Cr was 0.54. AST and ALT were mildly elevated. Urine tox was negative, and serum alcohol level was 210. She was admitted to be managed for acute alcohol withdrawal. She was started on alcohol withdrawal protocol with phenobarbital. She tolerated the 3-day detox process and did well. She remained stable and was discharged home on 11/14/2023. She is to follow up with her PCP within 1-2 weeks. Patient seen and examined prior to discharge. She had no complaints. She had an uneventful night. Review of systems otherwise negative. Labs and vitals reviewed. Home medication reviewed and reconciled. Const alert, oriented x3 and no apparent distress General Appearance: cooperative, comfortable, well kempt and well developed HEENT normocephalic, head/scalp atraumatic, hearing grossly normal bilaterally, moist oral mucous membranes and oropharynx normal Mouth: oral and palatal mucosa normal Eyes PERRL, EOMs intact bilaterally and conjunctivae normal Neck no lymphadenopathy and supple Lymph Lymphatic: no lymphadenopathy noted and no lymphedema noted Resp normal respiratory effort, normal air movement and clear to auscultation bilaterally Cardio regular rate, regular rhythm, S1 normal heart sound, S2 normal heart sound and no murmurs GI normal to inspection, nondistended, normoactive bowel sounds, soft to palpation, non-tender and non-distended Extremity normal to inspection, full ROM, normal capillary refill, no clubbing, cyanosis or edema and no calf tenderness General Extremity: no tenderness to palpation of joints or extremities Skin no rashes or lesions noted General Skin Exam: no breakdown and turgor normal Neuro oriented x3, CN's II-XII intact bilaterally, moves all extremities, no focal motor deficits, no sensory deficits noted and deep tendon reflexes 2+ bilaterally Sensorium / Orientation: awake and alert Motor Exam: strength 5/5 throughout and general weakness Psych thought process normal and cooperative Appearance: appropriate Weight / BMI Weight Weight: 138 lb 10.732 oz Body Mass Index (BMI) 25.3 ABG / Lab / Microbiology Data 11/11/23 09:20 11/11/23 09:20 D/C Instructions Discharge Diet: Low fat / Low cholesterol Weight Bearing Status: Weight bearing as tolerated Call your doctor if you observe: Fever of 101 or Higher, Shortness of breath, Dizziness, Swelling in the ankles and Chest pain Meaningful Use Info Meaningful Use Meaningful Use Diagnoses (Choose all that apply): None applicable Ischemic Stroke Statin Dosing Therapy Reference: STATIN DOSE THERAPY REFERENCE: * Patients > 75 years receive moderate or high dose statin therapy. * Patients 75 years or YOUNGER should receive HIGH intensity statin dose unless contraindicated. You will be required to document reason for non-treatment if statin daily dose does not meet guidelines. HIGH DOSE STATIN THERAPY DAILY Atorvastatin > than or = to 40 mg Rosuvastatin > than or = to 20 mg Amlodipine + Atorvastatin > than or = to 2.5/40 mg Ezetimibe + Simvastatin 10/80 mg Simvastatin 80mg Discharge Plan Admission Admit Date/Time: 11/11/23 10:50 Primary Reason for Your Visit: acute alcohol withdrawal Attending Provider: Mary Major Primary Care Provider: Shaniqua Jacob Instructions Patient Instructions: Alcoholism: Getting Help, Alcohol Addiction Discharge Orders/Prescriptions Prescriptions: Continued omega-3 fatty acids [Fish Oil Concentrate] 1,000 mg capsule 1,000 mg PO DAILY levothyroxine 75 MCG tablet 75 mcg PO DAILY aspirin 81 MG tablet,chewable 81 mg PO DAILY@0800 Patient Comments: pt forgets to take hydrochlorothiazide 25 MG tablet 25 mg PO DAILY metoprolol tartrate 25 MG tablet 12.5 mg PO BID cholecalciferol (vitamin D3) 1,000 UNIT tablet,chewable 1,000 unit PO DAILY albuterol sulfate 90 mcg/actuation HFA aerosol inhaler 2 puff INHALATION Q6H PRN (Reason: shortness of breath or wheezing) omeprazole 40 mg capsule,delayed release(DR/EC) 40 mg PO DAILY Patient Comments: pt takes occasionally Referrals / Follow Up: Shaniqua Jacob DO [Primary Care Provider] - Within 2 Weeks Disposition Disposition (needs filled in before D/C Order can be placed): Home, Self Care Charges/Coding Visit Charges Inpatient E&M: 03723 Disch Hosp >30min
--- NOTE | 2023-11-14 09:54 | PHA.DC.MR.R ---
Pharmacy [place] Med Reconciliation Pharmacy Service has performed discharge medication reconciliation for this patient. The patient's discharge medication list was reviewed for discrepancies and discrepancies were resolved. Medications at Discharge Home Medications aspirin 81 mg chewable tablet 81 mg PO DAILY@0800 05/21/16 hydrochlorothiazide 25 mg tablet 25 mg PO DAILY BP 05/21/16 levothyroxine 75 mcg tablet 75 mcg PO DAILY thyroid 05/21/16 metoprolol tartrate 25 mg tablet 12.5 mg PO BID Heart 05/21/16 cholecalciferol (vitamin D3) 25 mcg (1,000 unit) chewable tablet 1,000 unit PO DAILY 06/21/16 omega-3 fatty acids 1,000 mg capsule (Fish Oil Concentrate) 1,000 mg PO DAILY 09/06/19 albuterol sulfate 90 mcg/actuation aerosol inhaler 2 puff inhalation Q6H PRN shortness of breath or wheezing 11/11/23 omeprazole 40 mg capsule,delayed release 40 mg PO DAILY 11/11/23
--- NOTE | 2023-11-14 11:40 | CASEMGMT ---
Patient was not seen by news content specialist 5-2 to work on d/c plan. SW called Treatment Navigator at [facility] to inquire if patient is okay to leave or if they need to talk with patient again. Savanna Foster CLIENT DEVELOPMENT MANAGER SAUL
--- NOTE | 2023-11-14 12:05 | CASEMGMT ---
SW spoke with [employer] production support specialist. Patient's plan is to follow up with [facility] as an outpatient. Savanna Foster MOTOR BUILDER WINDER SAUL
--- NOTE | 2023-11-14 13:20 | CHAPLAIN ---
Type of Pastoral Visit _x__ Initial Visit ___ Follow-up Visit ___ On-call Visit ___ General Patient Visit ___ Spiritual Assessment ___ Family Conference ___ Bereavement ___ Rapid Response ___ Code Blue ___ Other (describe below) Pastoral Care Referral From _x__ Patient ___ Family ___ Nurse ___ Physician ___ [employer] Financial Developer ___ Dental Technology Advisor ___ Other (describe below) Sacrament/Intervention _x__ Active listening ___ Anointing ___ Catholic ___ Bereavement ___ Communion ___ Venus exploration ___ ___ Life review ___ Prayer ___ Reconciliation ___ Sacrament of Sick ___ Supportive presence ___ Wedding ___ Other (describe below) Pastoral Comments patient was sitting in her chair and stated that she was waiting for final word on her discharge; pt states she is fine; pt is vague about what happens next and claims that she is not concerned, that she has support, and that she is going to handle this and be fine; pt denies needs
== END 2023-11-14 12:38 | disposition home or self-care (01) | DRG 897 ==
LOC: ED 10:52 → PCU 11:09
PROVIDERS: Admitting Provider Student in an Organized Health Care Education/Training Program; Emergency Provider Emergency Medicine; PCP Family Medicine; Visit Provider Student in an Organized Health Care Education/Training Program
DX: F10.239 Alcohol dependence with withdrawal, unspecified (principal); E03.9 Hypothyroidism, unspecified; I10 Essential (primary) hypertension; F17.210 Nicotine dependence, cigarettes, uncomplicated; Z79.82 Long term (current) use of aspirin; Y90.7 Blood alcohol level of 200-239 mg/100 ml
CPT/HCPCS: 80053; 80307; 80320; 83690; 85025; 97802; 99284; A4216; G0480; J2405

== ENCOUNTER 2024-02-23 16:49 | Emergency (ER) | payer BC, SELFPAY ==
[2024-02-23 16:53] VITALS: BP 150/136; PULSE 78; RESP 21; TEMP 36.2; O2SAT 94; BMI 25.9
--- NOTE | 2024-02-23 17:12 | EDS_ITS ---
HPI HPI - Fall History of Present Illness Chief Complaint: Fall Informant: patient Occured/Mechanism Occurred: Today Mechanism/Context: Yes trip Pain/Injury Location: Right hand, right elbow Quality of Pain: Aching Worsened by: Movement Relieved by: Nothing Associated Symptoms Associated Symptoms: Negative for Parasthesias, Weakness, Loss of function, Inability to ambulate, Loss of consciousness or Amnesia Narrative Narrative: Patient presents after a fall that occurred today. Patient states she tripped and fell. Patient states she landed on her right hand and elbow. Patient states she was having difficulty getting up because of the pain in her right hand and elbow. Patient states she called her [id number] who called EMS. Patient denies any head injury or loss of consciousness. Patient denies any paresthesias or weakness. Patient denies any other injuries. Patient states the pain in her right hand and elbow is dull and aching. Patient states it is constant. Patient states it is worse with movement. [facility] Medical History Alcohol abuse HTN (hypertension) Hypothyroidism Home Medications ?Medication ?Instructions ?Recorded ?Last Taken ?Type aspirin 81 mg chewable tablet 81 mg PO DAILY@0800 heart health 05/21/16 06/26/16 06:00 History hydrochlorothiazide 25 mg tablet 25 mg PO DAILY BP 05/21/16 11/10/23 06:00 History levothyroxine 75 mcg tablet 75 mcg PO DAILY thyroid 05/21/16 11/10/23 06:00 History metoprolol tartrate 25 mg tablet 12.5 mg PO BID BP/heart 05/21/16 11/10/23 19:00 History cholecalciferol (vitamin D3) 25 1,000 unit PO DAILY supplement 06/21/16 Unknown History mcg (1,000 unit) chewable tablet omega-3 fatty acids 1,000 mg 1,000 mg PO DAILY supplement 09/06/19 Unknown History capsule (Fish Oil Concentrate) albuterol sulfate 90 mcg/actuation 2 puff inhalation Q6H PRN 11/11/23 Unknown History aerosol inhaler shortness of breath or wheezing omeprazole 40 mg capsule,delayed 40 mg PO DAILY reflux 11/11/23 Unknown History release Allergy/AdvReac Type Severity Reaction Status Date / Time amoxicillin (From Augmentin) Allergy Rash Verified 11/11/23 09:05 clavulanic acid (From Allergy Rash Verified 11/11/23 09:05 Augmentin) Sulfa (Sulfonamide Allergy Rash Verified 11/11/23 09:05 Antibiotics) Surgical History Hx of partial thyroidectomy Social History (Updated 02/23/24 @ 17:[address] Arden Balbuena DO) household members: family housing: house Smoking Status: Current every day smoker tobacco type: cigarettes alcohol intake: current alcohol intake frequency: 3 or more drinks per day ROS ROS ED Constitutional Constitutional ED: Denies chills or fever(s) Eyes Eyes: Denies blurry vision or change in vision ENT ENT ED: Denies rhinorrhea or sore throat Cardiovascular Cardiovascular: Denies chest pain or palpitations Respiratory/Chest Respiratory/Chest: Denies cough or dyspnea Gastrointestinal Gastrointestinal: Denies nausea or vomiting Genitourinary Genitourinary ED: Denies dysuria or hematuria Musculoskeletal Musculoskeletal: Denies back pain or neck pain Integumentary Denies abscess or rash Neurologic Neurologic: Denies headache(s) or weakness Allergic/Immunologic Allergic/Immunologic ED: Denies mouth swelling or urticaria EXAM Physical Exam Const Vital Signs: 02/23/24 16:53 02/23/24 16:58 02/23/24 18:34 Temperature 97.1 F L Temperature Source Temporal Pulse Rate 78 89 Respiratory Rate 21 H 26 H Respiratory Effort Normal Blood Pressure 150/136 H 126/101 H Blood Pressure Mean 140 109 Pulse Ox 94 97 Oxygen Delivery Method Room Air Room Air Positive well nourished and well developed General Appearance ED: well developed and NAD HEENT Reports normocephalic atraumatic Neck full ROM and supple Resp normal respiratory effort and clear to auscultation bilaterally Cardio regular rate and regular rhythm GI non-tender and non-distended Palpation: soft Extremity Extremity Narrative: There is tenderness and mild edema over the right hand. There is a superficial abrasion over the posterior lateral aspect of the right elbow. There is some ecchymosis around this area. There is tenderness to palpation over the lateral epicondyle. There is no deformity noted. Range of motion was limited in all motions of the right hand and right elbow secondary to pain. Radial pulses are equal bilaterally. Strength is 5/5 in the radial, median, and ulnar areas. Sensation was intact to light touch in the radial, medial, and ulnar areas. Neuro oriented x3, CN's II-XII intact bilaterally, moves all extremities, no focal motor deficits and no sensory deficits noted [place] Coma Scale: document GCS findings Spontaneous Obeys Commands Oriented 15 Sensorium / Orientation: alert Motor Exam: strength 5/5 throughout Psych mental status grossly normal and thought process normal Skin Trauma: abrasion MDM MDM MDM Narrative Medical decision making narrative: Differential diagnosis includes hand fracture, elbow fracture, and contusion. X-rays of the right elbow will be obtained to assess for fracture. X-rays of the right hand will be obtained to assess for fracture. Radiography Diagnostic Testing: Clinical Impression(s) from Imaging Studies Elbow X-Ray 02/23/24 17:20 IMPRESSION: Negative right elbow. Electronically Signed: Raajt Falk MD at 18:08 EDT , Hand X-Ray 02/23/24 17:20 IMPRESSION: Lucent lines in the fifth metacarpal which may represent nondisplaced hairline fractures. No other abnormalities are identified. Electronically Signed: Rajat Falk MD at 18:08 EDT , X-rays of the right elbow were obtained. There are 3 views. On my independent interpretation, there is no acute fracture. There is no joint effusion noted. Radiologist also interpreted the x-rays and agrees. X-rays of the right hand were obtained. There are 3 views. On my independent interpretation, there is a nondisplaced fracture of the diaphysis of the fifth metacarpal. There is no angulation. Radiologist also interpreted the x-rays and agrees. Treatment and Re-Evaluation Narrative: Smoking cessation was discussed. Patient was advised of her findings. Patient was placed in a well-padded custom made ulnar gutter splint using 3 inch Ortho- Glass. Patient was instructed to ice and elevate the right hand. Patient was instructed to take Tylenol or ibuprofen as needed for pain. Patient was given a referral for orthopedics. Patient was also instructed to follow-up with her primary care physician in 5 to 7 days. Patient and family understood and were agreeable with the plan. All questions were answered. Procedures Upper Extremity Splints Upper Extremity Splint: Orthoglass and Ulnar gutter Splint Fabrication: Fabricated Location: Right Discharge Plan Triage Chief Complaint: Fall ED Provider: Arden Blabuena Dx/Rx/DC Orders Clinical Impression: Closed fracture of fifth metacarpal bone, Fall, Tobacco use Instructions: ED Closed Hand Fracture (Adult) Prescriptions: No Action omega-3 fatty acids [Fish Oil Concentrate] 1,000 mg capsule 1,000 mg PO DAILY levothyroxine 75 MCG tablet 75 mcg PO DAILY aspirin 81 MG tablet,chewable 81 mg PO DAILY@0800 Patient Comments: pt forgets to take hydrochlorothiazide 25 MG tablet 25 mg PO DAILY metoprolol tartrate 25 MG tablet 12.5 mg PO BID cholecalciferol (vitamin D3) 1,000 UNIT tablet,chewable 1,000 unit PO DAILY albuterol sulfate 90 mcg/actuation HFA aerosol inhaler 2 puff INHALATION Q6H PRN (Reason: shortness of breath or wheezing) omeprazole 40 mg capsule,delayed release(DR/EC) 40 mg PO DAILY Patient Comments: pt takes occasionally Primary Care Provider: Shaniqua Jacob Referrals: Aquiles Rogers MD [Med Staff - Active Staff] - 3-5 Days Shaniqua Jacob DO [Primary Care Provider] - 5-7 Days Print Language: Bur[place]ian Disposition Disposition: Home, Self Care
--- NOTE | 2024-02-23 17:20 | RAD_ITS ---
EXAM: XR RIGHT HAND COMPLETE, 3 OR MORE VIEWS CLINICAL INDICATION: Injury/Pain TECHNIQUE: Frontal, lateral and oblique views of the right hand. COMPARISON: No relevant prior studies available. FINDINGS: BONES/JOINTS: There are lucent lines in the fifth metacarpal which may represent nondisplaced hairline fractures. Preservation of the joint space. SOFT TISSUES: Unremarkable. No soft tissue swelling or gas. No radiopaque foreign body. RAD/Hand Min 3 Views IMPRESSION: Lucent lines in the fifth metacarpal which may represent nondisplaced hairline fractures. No other abnormalities are identified. Electronically Signed: Rajat Falk MD at 18:08 EDT ,
--- NOTE | 2024-02-23 17:20 | RAD_ITS ---
EXAM: XR RIGHT ELBOW COMPLETE, 3 OR MORE VIEWS CLINICAL INDICATION: Injury/Pain TECHNIQUE: Frontal, lateral and oblique views of the right elbow. COMPARISON: No relevant prior studies available. FINDINGS: BONES/JOINTS: Unremarkable. There is no displacement of the anterior or posterior fat pads. No acute fracture. No subluxation. Normal alignment. Preservation of the joint space. No destructive or sclerotic lesions. SOFT TISSUES: Unremarkable. No soft tissue swelling or gas. No radiopaque foreign body. RAD/Elbow min 3 Views IMPRESSION: Negative right elbow. Electronically Signed: Rajat Falk MD at 18:08 EDT ,
[2024-02-23 18:34] VITALS: BP 126/101; PULSE 89; RESP 26; O2SAT 97
[2024-02-23 19:51] VITALS: BP 128/99; PULSE 86; RESP 20; TEMP 36.3; O2SAT 99
== END 2024-02-23 19:52 | disposition home or self-care (01) ==
PROVIDERS: Emergency Provider Emergency Medicine; PCP Family Medicine; Visit Provider Emergency Medicine
DX: S62.306A Unspecified fracture of fifth metacarpal bone, right hand, initial encounter for closed fracture (principal); F17.210 Nicotine dependence, cigarettes, uncomplicated; W19.XXXA Unspecified fall, initial encounter
CPT/HCPCS: 29125; 73080; 73130; 99282

== ENCOUNTER 2024-02-29 13:31 | Inpatient (IN) | payer BC, SELFPAY ==
[2024-02-29 13:49] VITALS: BP 126/80; PULSE 80; RESP 16; TEMP 36.6; O2SAT 97
[2024-02-29 13:50] VITALS: BMI 25.0
[2024-02-29 15:33] VITALS: O2SAT 99
[2024-02-29] MEDS: Acetaminophen 325 MG Tablet 650 MG PO (15:47)
[2024-02-29 18:00] VITALS: BP 133/73; PULSE 68; RESP 17; TEMP 36.6; O2SAT 97
[2024-02-29] MEDS: cycloBENZAPRine HCl 10 MG Tablet PO (18:08)
--- NOTE | 2024-02-29 18:17 | NURSING ---
New admit to rehab. Patient is alert and oriented. Not impulsive and good with directions and very compliant. Aware of how to use the call robles.
[2024-02-29 20:22] VITALS: BP 134/86; PULSE 67
[2024-02-29] MEDS: Metoprolol Tartrate 25 MG Tablet PO (20:22)
[2024-02-29] MEDS: Atorvastatin Calcium 40 MG Tablet PO (20:22)
[2024-02-29] MEDS: Thiamine Hydrochloride 100 MG Tablet PO (20:24)
[2024-02-29] MEDS: Heparin Injection (Vial) 5,000 UNIT/ML VIAL 5000 UNIT SC (20:24)
[2024-03-01] MEDS: Levothyroxine 75 MCG Tablet PO (05:09)
[2024-03-01] MEDS: Thiamine Hydrochloride 100 MG Tablet PO ×3 (05:10→21:28)
[2024-03-01 05:11] VITALS: BP 137/93; PULSE 67; RESP 16; TEMP 36.6; O2SAT 100
[2024-03-01 06:50] LABS: Hematocrit 39.7 % (37-47); Hemoglobin 12.4 g/dL (12.0-15.0); Mean Corp Hgb Conc 31.2 g/dL (32-36); Mean Corpuscular Hgb 27.8 pg (27.0-32.0); Mean Platelet Vol. 11.4 fl (6.2-12.0); Platelet Count 226 K/mm3 (150-450); RBC Distribution Width SD 60.8 fl (35.1-43.9); Red Blood Count 4.46 M/mm3 (4.2-5.4); White Blood Count 5.9 K/mm3 (4.4-11.0)
[2024-03-01 07:47] VITALS: O2SAT 95
[2024-03-01] MEDS: hydroCHLOROthiazide 25 MG Tablet PO (07:59)
[2024-03-01] MEDS: Aspirin 81 MG TAB.CHEW PO (07:59)
[2024-03-01 08:00] VITALS: BP 137/93; PULSE 67
[2024-03-01] MEDS: Heparin Injection (Vial) 5,000 UNIT/ML VIAL 5000 UNIT SC ×2 (08:00→21:27)
[2024-03-01] MEDS: Metoprolol Tartrate 25 MG Tablet PO ×2 (08:00→21:28)
[2024-03-01] MEDS: Cholecalciferol (VIT D3) 25 MCG TABLET (1,000 UNITS) PO (08:01)
[2024-03-01] MEDS: Clopidogrel Bisulfate 75 MG Tablet PO (08:01)
[2024-03-01 08:38] LABS: ALB/GLOB Ratio 0.9 RATIO (0.9-2.4); AST(SGOT) 118 U/L (15-37); Alanine Aminotransfer ALT/SGPT 91 U/L (13-56); Alkaline Phosphatase 84 U/L (45-117); Anion Gap 8 (5-15); BUN 16 mg/dL (7-18); BUN/Creat Ratio 21.2 RATIO (10-20); Chloride 99 mmol/L (98-107); Creatinine, Serum 0.76 mg/dL (0.55-1.02); EST Glomerular Filtration Rate 83 mL/min (>60); Est Glom Filt Rate - Afr Amer 100 mL/min (>60); Estimated Creatinine Clearance 66.52 ml/min; Globulin 4.4 g/dL (2.2-4.2); Glucose 125 mg/dL (74-106); Magnesium 1.8 mg/dL (1.6-2.6); Phosphorus 4.5 mg/dL (2.5-4.9); Potassium 2.9 mmol/L (3.5-5.1); Protein, Total 8.4 g/dL (6.4-8.2); Sodium Level 134 mmol/L (136-145)
--- NOTE | 2024-03-01 09:43 | EX.PCM.HP.RE ---
HPI - General General Date of Admission: 02/29/24 Date of Service: 03/01/24 Chief Complaint: Post stroke debility HPI Narrative PHILOMENA CONNOLLY, is a 64-year-old F with a past medical history of hypertension, alcohol abuse, tobacco dependence, noncompliance with medication, vitamin D deficiency, hypothyroidism and a recent fall on 02/23/2024 resulting in a a possible hairline fracture of the right fifth metacarpal. She was seen in the [facility] ED on 02/23/24 and given a splint. The following day she presented to the emergency department at [facility] complaining of weakness in the right arm and right leg. CT scan of the head revealed no acute findings. CTA showed no large vessel occlusions. NIHSS was 3 for right arm drift, right leg drift (hit bed). Brain MRI showed a small acute/subacute infarct in the posterior limb of the left internal capsule. She was started on atorvastatin 40 mg for hyperlipidemia and dual antiplatelet agents. Metoprolol and hydrochlorothiazide were restarted....she had been non-compliant with these medications as an OP. Echocardiogram showed a normal-sized ventricle with a 63% EF. There was normal left ventricular diastolic dysfunction. Bubble study was negative for a [id number] shunt. There were no significant valvular abnormalities. LFTs at admission to [facility] 9 showed an elevated AST of 71 with a normal ALT of 35. Alk phos and bilirubin were within normal limits. The LDL was 160, the HDL was 87 and triglycerides were normal. TSH was normal at 3.2. Hemoglobin A1c was 5.5. Consult was obtained with tele-neurology and dual antiplatelet agents were recommended for 3 weeks and then continue with ASA alone. Goal for BP is < 130/80 and the goal for the LDL is 70 or less. While at [facility] she was seen by PT/OT and a recommendation was made for acute rehab at [place]. She was transferred to the acute inpt rehab unit at [facility] on 02/29/24 for 3 hours of therapy daily to restore function/independence at or near the level prior to the stroke. Admitted to [facility] in November 2023 for acute alcohol withdrawal and had a 3 day detox. Afebrile Heart rate is within normal limits and has ranged from 67-80 since arrival on rehab. Blood pressure has ranged from 126/80 to 137/93 since arrival on rehab. Maintaining appropriate oxygen saturation on room air. The medication list was reviewed. DVT prophylaxis with heparin 5000 units SQ every 12 hours All lab from today was personally reviewed. Sodium is low at 134 and the potassium is low at 2.9. The BUN is 16 with a creatinine of 0.76, up from 0.54 on 11/11/2023. Fasting glucose is elevated at 125. GFR is 83. Magnesium is 1.8 and phosphorus is within normal limits. AST is elevated at 118 and the ALT is 91. Bilirubin is within normal limits and so is the alkaline phosphatase. Hemoglobin is normal at 12.4 and the MCV is 89. RDW is increased. Platelets are normal. In October 2023 she had 2+ anisocytosis, 1+ microcytosis and 1+ macrocytosis. [facility] Medical History (Updated 03/01/24 @ 16:[address] Tracy Ortega, ) Hyperlipidemia Noncompliance History of colon polyps Ischemic cerebrovascular accident (CVA) Nocturia more than twice per night Insomnia GERD (gastroesophageal reflux disease) Tobacco dependence Alcohol abuse HTN (hypertension) Hypothyroidism Home Medications ?Medication ?Instructions ?Recorded ?Last Taken ?Type aspirin 81 mg chewable tablet 81 mg PO DAILY@0800 heart health 05/21/16 06/26/16 06:00 History hydrochlorothiazide 25 mg tablet 25 mg PO DAILY BP 05/21/16 11/10/23 06:00 History levothyroxine 75 mcg tablet 75 mcg PO DAILY thyroid 05/21/16 11/10/23 06:00 History metoprolol tartrate 25 mg tablet 25 mg PO BID BP/heart 05/21/16 11/10/23 19:00 History cholecalciferol (vitamin D3) 25 1,000 unit PO DAILY supplement 06/21/16 Unknown History mcg (1,000 unit) chewable tablet albuterol sulfate 90 mcg/actuation 2 puff inhalation Q6H PRN 11/11/23 Unknown History aerosol inhaler shortness of breath or wheezing atorvastatin 40 mg tablet 40 mg PO QHS cholesterol 02/29/24 Unknown History clopidogrel 75 mg tablet 75 mg PO DAILY stroke 02/29/24 Unknown History cyclobenzaprine 10 mg tablet 10 mg PO TID PRN PRN pain 02/29/24 Unknown History thiamine HCl (vitamin B1) 100 mg 100 mg PO TID vitamin 02/29/24 Unknown History tablet Allergy/AdvReac Type Severity Reaction Status Date / Time amoxicillin (From Augmentin) Allergy Rash Verified 11/11/23 09:05 clavulanic acid (From Allergy Rash Verified 11/11/23 09:05 Augmentin) Sulfa (Sulfonamide Allergy Rash Verified 11/11/23 09:05 Antibiotics) Family History (Updated 03/01/24 @ 09:[address] Tracy Ortega DO) Mother Hypertension Diabetes Depression Hyperlipidemia Other Uterine cancer Surgical History (Updated 03/01/24 @ 10:[address] Tracy Ortega DO) History of meniscectomy of right knee History of cardiac catheterization History of appendectomy History of thyroidectomy H/O rotator cuff surgery History of breast biopsy S/P left knee arthroscopy History of carpal tunnel release Hx of partial thyroidectomy Social History (Updated 03/01/24 @ 10:[address] Tracy Ortega DO) household members: family housing: house Smoking Status: Current every day smoker tobacco type: cigarettes Tobacco: How many years used: 45 how long ago did patient quit smoking: No interest in quitting. Smokes 1 to 2 packs/day. alcohol intake: current alcohol intake frequency: 3 or more drinks per day Alcohol type: hard liquor ROS Review of Systems ROS Unobtainable: Denies due to encephalopathy, due to endotracheal tube, due to mental condition or due to mental status Constitutional Constitutional: Reports weakness; Denies anorexia, change in weight, chills, fatigue, fever(s) or night sweats Eyes Eyes: Denies blurry vision, change in vision, eye pain or loss of vision ENT HEENT: Reports nasal congestion; Denies abnormal hearing, dysphagia, headache(s), hearing loss or sore throat Cardiovascular Cardiovascular: Reports dyspnea on exertion, palpitations and other Details: Can not really tell me what lead to the fall that caused the metacarpal fracture. [place]ney snot know if she lost consciousness or not. Failed to mention any R leg weakness to the ED doc at [facility]. Only complained of R hand and elbow pain. ; Denies chest pain, edema, lightheadedness, orthopnea, paroxysmal nocturnal dyspnea or syncope Respiratory/Chest Respiratory/Chest: Reports cough, shortness of breath with exertion and other Details: cough is chronic. Tells me that she has an inhaler for allergies but, rarely uses it. Denies ever having PFT's. Has never had a CXR AT [facility]. ; Denies dyspnea, hemoptysis, shortness of breath at rest or wheezing Gastrointestinal Gastrointestinal: Denies abdominal pain, constipation, diarrhea, dyspepsia, hematemesis, hematochezia, nausea or vomiting Genitourinary Genitourinary: Denies dysuria, hematuria, nocturia, urinary frequency, urinary hesitancy, urinary incontinence or urinary urgency Musculoskeletal Musculoskeletal: Reports muscle weakness and other Details: pain in the R hand, debby if the arm has been hanging down for a while. Also c/o some numbness in the R hand since the splint was applied. Needs to see ortho. ; Denies back pain, joint pain, joint swelling or neck pain Integumentary Integumentary: Denies dry skin, jaundice, pruritus, rash or wounds Neurologic Neurologic: Reports focal weakness, paresthesias RUE (R hand - states this started when the splint was applied. ) and other; Denies confusion, disequilibrium, dizziness, headache(s), seizures or tremor(s) Psychiatric Psychiatric: Reports other Details: Tells me that she thinks she has had depression and anxiety but, she has never been treated for this. Admits to trouble sleeping and ignoring her health. ; Denies anxiety, depression, homicidal ideation or suicidal ideation Endocrine Endocrinology: Denies change in body appearance, polydipsia or polyuria Hematologic/Lymphatic Hematologic/Lymphatic: Denies easy bleeding, easy bruising or lymphadenopathy Allergic/Immunologic Allergic/Immunologic: Reports rhinitis; Denies eczemia or asthma Vital Signs Vital Signs Vital Signs: 02/29/24 13:49 02/29/24 15:33 02/29/24 18:00 Temperature 97.8 F 97.9 F Temperature Source Oral Oral Pulse Rate 80 68 Respiratory Rate 16 17 Blood Pressure 126/80 H 133/73 H Blood Pressure Mean 95 93 Blood Pressure Source Monitor Monitor Blood Pressure Position Sitting Semi-Fowlers Blood Pressure Location Left Arm Left Arm Pulse Ox 97 99 97 Oxygen Delivery Method Room Air Room Air Room Air 02/29/24 20:22 02/29/24 21:33 03/01/24 05:11 Temperature 97.8 F Temperature Source Oral Pulse Rate 67 67 Respiratory Rate 16 Blood Pressure 134/86 H 137/93 H Blood Pressure Mean 107 Blood Pressure Source Monitor Blood Pressure Position Sitting Blood Pressure Location Left Arm Pulse Ox 100 Oxygen Delivery Method Room Air Room Air 03/01/24 07:47 03/01/24 08:00 Temperature Temperature Source Pulse Rate 67 Respiratory Rate Blood Pressure 137/93 H Blood Pressure Mean Blood Pressure Source Blood Pressure Position Blood Pressure Location Pulse Ox 95 Oxygen Delivery Method Room Air Weight Weight: 136 lb 14.513 oz Body Mass Index (BMI) 25.0 Indicators for Scoring Admitted with or Primary Diagnosis of CVA/Stroke: Yes Hx of CVA/Stroke: Yes Modified [place] Score MRS Score at time of Evaluation: 4-Moderate/severe disability NIHSS NIHSS 1a. Level of Consciousness: Alert; keenly responsive 1b. LOC Questions: Answers BOTH questions correctly. 1c. LOC Commands: Performs both tasks correctly. 2. Best Gaze: Normal 3. Visual: No visual loss 4. Facial Palsy: Minor paralysis (flattened nasolabial fold, asymmetry on smiling) 5a. Left Arm: No drift; arm holds 90 (or 45) degrees for full 10 seconds 5b. Right Arm: No drift; arm holds 90 (or 45) degrees for full 10 seconds 6a. Left Leg: No drift; leg holds 30-degree position for full 5 seconds 6b. Right Leg: No drift; leg holds 30-degree position for full 5 seconds 7. Limb Ataxia: Absent 8. Sensory: Normal; no sensory loss (subjective numbness in the R hand) 9. Best Language: No aphasia; normal 10. Dysarthria: Normal 11. Extinction and Inattention: No abnormality Total: 1 Stroke Questions Stroke Team Activated: No Physical Exam Const alert, oriented x3 and no apparent distress Constitutional Narrative: Flat affect. does not make eye contact when she is asked a question she is hesitant to answer. General Appearance: cooperative and well developed Orientation / Consciousness: Negative for confused HEENT normocephalic and head/scalp atraumatic HEENT Narrative: No thrush Mouth: dry mucous membranes Eyes PERRL and EOMs intact bilaterally Neck supple, no JVD, No nodes and no carotid bruits General: trachea midline Resp normal respiratory effort, normal air movement and clear to auscultation bilaterally Resp Narrative: No cough with deep breathing Effort and Inspection: Negative for tachypneic or respiratory distress Cardio regular rate, regular rhythm, S1 normal heart sound, S2 normal heart sound, no murmurs, no rub and no gallops Cardio Narrative: Occasional ectopic. When she had the ECHO at [place] the comment was made on the report that she was having a lot of PVC's GI normal to inspection, nondistended, normoactive bowel sounds, soft to palpation and non-tender GI Narrative: No guarding with palpation Extremity no calf tenderness General Extremity: Negative for clubbing, cyanosis or edema Skin no wounds, no jaundice, no petechiae and no mottling General Skin Exam: no breakdown and dry skin Rashes: no rashes Neuro Neuro Narrative: Mild right facial droop. Tongue protrudes on the midline. Pupils are equal round and reactive to light. No visual field cuts. No drift with the right upper extremity or right lower extremity but there is increased weakness when compared to the left side. She is right-hand dominant. Intact sensation. No aphasia, no dysarthria, no extinction, no ataxia. She has subjective numbness of the right hand. Coordination / Balance: [id number] test normal and [id number] test normal Speech: speech normal Psych cooperative Psych Narrative: Flat affect. Avoids eye contact when you ask a question that she does not want to answer. Seems apathetic about her health care. Has not had regular F/U with PCP and office would not refill RX's without seeing her. Had a colonoscopy > 10 years ago and has not followed up for a repeat since the office never called her. Fired from her job about 6-7 months ago. Having some conflicts with her dtr who is currently living with the patient and her . Appearance: appropriate Mood & Affect: flat affect Thought Content: No suicidality, No homicidality and No hallucination(s) Results Lab / Micro Data 03/01/24 06:32 03/01/24 06:32 Labs: Laboratory Results - last 24 hr 03/01/24 06:32: WBC 5.9, RBC 4.46, Hgb 12.4, Hct 39.7, MCV 89.0, MCH 27.8, MCHC 31.2 L, RDW Std Deviation 60.8 H, RDW Coeff of Gucci 19.0 H, Plt Count 226, MPV 11.4, Sodium 134 L, Potassium 2.9 L, Chloride 99, Carbon Dioxide 27.0, Anion Gap 8, BUN 16, Creatinine 0.76, Estim Creat Clear Calc 66.52, Est GFR (MDRD) Af Amer 100, Est GFR (MDRD) Non-Af 83, BUN/Creatinine Ratio 21.2 H, Glucose 125 H, Calcium 10.0, Phosphorus 4.5, Magnesium 1.8, Total Bilirubin 0.50, AST 118 H, ALT 91 H, Alkaline Phosphatase 84, Total Protein 8.4 H, Albumin 4.0, Globulin 4.4 H, Albumin/Globulin Ratio 0.9 Assessment & Plan Assessment/Plan (1) Physical debility: (2) Ischemic cerebrovascular accident (CVA): (3) Right sided weakness: (4) Facial droop due to acute cerebrovascular accident (CVA): (5) Hypokalemia: (6) Hyponatremia: (7) Hypomagnesemia: (8) Dehydration: (9) Fall: QUALIFIERS: Encounter type: subsequent encounter Qualified Code(s): W19.XXXD - Unspecified fall, subsequent encounter (10) Closed fracture of fifth metacarpal bone: QUALIFIERS: Encounter type: subsequent encounter Metacarpal location: shaft Fracture alignment: nondisplaced Laterality: right (11) Alcohol abuse: (12) Tobacco dependence: (13) Depression: QUALIFIERS: Depression Type: unspecified Qualified Code(s): F32.A - Depression, unspecified (14) Hyperlipidemia: QUALIFIERS: Hyperlipidemia type: pure hypercholesterolemia Qualified Code(s): E78.00 - Pure hypercholesterolemia, unspecified (15) HTN (hypertension): (16) Noncompliance: PLAN: With medication and physician follow-up. (17) History of colon polyps: (18) Nocturia more than twice per night: (19) Insomnia: (20) Transaminitis: PLAN: Plan PLAN PT for gait stability OT for ADL's ST for evaluation Analgesics as needed Bowel protocol Fall precautions Assess for Anxiety/Depression GI prophylaxis -not necessary at this time. She denies heartburn currently and also denies history of peptic ulcer disease, epigastric pain, nausea and vomiting. DVT prophylaxis with 5000 units SQ every 12 hours Follow up with PCP, neurology and cardiology (after the conclusion of the 30-day event monitor) he following DC from [facility] AM lab including CMP, CBC, Mag and Phos -all personally reviewed Iron, TIBC, ferritin, B12, folate, reticulocyte count. Check a Hemoccult stool Supplement potassium and magnesium Discontinue hydrochlorothiazide-potassium magnesium were normal prior to restarting hydrochlorothiazide. She told the SW she is willing to take something at bedtime to help with sleep. 30-day event monitor at discharge [facility] discharge Smoking cessation counseling given Alcohol cessation counseling given Will need a lipid panel and liver panel in 4 to 6 weeks. Recheck LFTs later in the course of her admission. She had transaminitis even prior to the institution of atorvastatin. Possible alcoholic hepatitis vs fatty infiltration of the liver. Charges/Coding Visit Charges Inpatient E&M: 50287 Init Hosp L3
--- NOTE | 2024-03-01 10:33 | PCM.RU.PYE ---
Admission Information Primary Diagnosis:: Post stroke debility Actual Problem List:: Depression, Alteration in Sleep, Mobility Impaired, Self Care Deficit, Know.Dfct/Disease Process, Know.Dfct of Medicaitons, BP, Hypertension, Alteration/ Air Exchange, Fluid Change-Dehydration and Alteration-Leisure Activ. Risk of Complications DVT: CHERRY Hose and - (Heparin 5000 units subcutaneously every 12 hours) Bleeding: Monitor Lab Values, Nursing to Teach Precautions for anti-coagulation therapy., Wound, if applicable, to be assessed every shift. and Stroke patients assessed for lethargy or change in status. Infection: Clinical Staff to Monitor for S/S of infection: and S/S of infection include fever, redness, warmth, etc. Urinary Tract Infection: Monitor for frequency, burning, discomfort, or incontinence. and Nursing will obtain urine sample for urinalysis and C&S when ordered. Aspiration: Clinical staff will monitor for coughing, drooling, congestion., Speech will evaluate swallowing and dsyphasia. and Nursing will monitor patient swallowing during meals. Falls: Patient will be evaluated for Fall Precautions and Patient will be placed on Fall Precautions as indicated per protocol. Skin Breakdown: Nursing will assess skin daily using assessment tool. and Nursing will place on Skin Breakdown Precautions as indicated. Pain: Clinical staff will assess patient's pain level per protocol., Medications will be given, if needed, and the pain level reassessed. and Other methods: Massage, distraction, decrease stimulus, etc. used PRN. Plan of Care Patient requires physician specializing in physical medicine and rehab oversight to provide close medical supervision of rehab issues including: Pain Management, Sleep Problems, Bowel and Bladder, Medical and co-morbidity Management, DVT prophylaxis, Rehabilitation Leadership and Coordination of treatment team Patient needs Physical Therapy: For a minimum of 1 hour and At least 5 out of 7 days Patient needs Physical Therapy to improve:: Mobility, Strengthening, Transfers, Stretching, ROM, Endurance, Stairs, Gait and Balance Patient needs Occupational Therapy: For a minimum of 1 hour and At least 5 out of 7 days Patient needs Occupational Therapy to improve ADL's incl.: Eating, Grooming, Bathing, Dressing, Toileting, Toilet transfers, Community Reintegration, Higher functioning activities, Household tasks, Adaptive Equipment, Splinting and Other activities as determined Patient requires speech therapy: For a minimum of 1 hour and At least 5 out of 7 days Patient requires speech therapy for: Swallowing, Cognition, Language Skills and Compensatory Strategies Patient requires 24/ Rehabilitation Nursing for: Pain Issues, Identifying and preventing risk factors, Monitoring and reporting current medical conditions, Assisting with ambulation, transfer, and all ADL's, Teaching patients about disease process and medications, Family teaching, Providing safe environment, Bowel and Bladder Issues, Skin integrity and Medication Management Patient needs Funeral Pre Arrangement Specialist/ Case Management for: Discharge Planning, Arranging Home Equipment or Services and Family Interventions Patient needs Dietary and Nutrition Services for: Adequate Nutrition, Nutritional Supplements and Nutritional Education Goals Goals Patient will remain: free from falls Patient will perform eating at: MOD I level of assist. Patient will perform bed mobility at: MOD I level of assist. Patient will complete transfers from bed to chair at: MOD I level of assist. Patient will ambulate: - (500 feet independently on various surfaces) Patient will complete upper body dressing at: MOD I level of assist. Patient will complete lower body dressing at: MOD I level of assist. (With adaptive equipment as needed) Patient will complete toilet transfer at: MOD I level of assist. Patient will complete toileting at: MOD I level of assist. Patient will perform bathing at: MOD I level of assist. Patient will perform Tub/Shower transfer at: - (Supervision for the first 1 to 2 weeks post discharge.) Patient will complete grooming at: MOD I level of assist. (While standing at the sink) Patient will complete home management skills at: MOD I level of assist. Patient will achieve: 12 stairs (With 1 handrail at standby assist) Patient will have pain level of: of 3 or less Patient's skin will: remain intact Patient will receive: adequate nutrition. Discharge Planning Pt Prognosis for Sig. Practical Improv. w/in Reasonable Time: Good Estimated Length of stay (days): 21 Anticipated D/C Destination: Home w/ family or friends Was Preadmission Assessment Accurate?: Yes
[2024-03-01 11:53] LABS: Platelet Count 233 K/mm3 (150-450); Reticulocyte Count 1.26 % (0.5-1.5)
[2024-03-01 12:02] LABS: Vitamin B12 543 pg/mL (211-911)
[2024-03-01 12:16] LABS: Ferritin 47 ng/mL (8-252); Iron 39 ug/dL (50-170); Iron Binding Capacity,Total 501 ug/dL (250-450); PERCENT IRON SATURATION 7.8 % (15.0-55.0)
[2024-03-01] MEDS: Potassium Chloride Oral Tablet 20 MEQ 40 MEQ PO (12:20)
[2024-03-01] MEDS: Magnesium Chloride 64 MG Delay Rel.Tablet 128 MG PO (12:20)
[2024-03-01] MEDS: Potassium Chloride Oral Tablet 20 MEQ PO (17:14)
[2024-03-01 17:56] VITALS: BP 117/84; PULSE 67; RESP 17; TEMP 36.2; O2SAT 97
[2024-03-01 21:28] VITALS: BP 121/78; PULSE 70
[2024-03-01] MEDS: Mirtazapine 15 MG Tablet PO (21:28)
[2024-03-01] MEDS: Atorvastatin Calcium 40 MG Tablet PO (21:28)
[2024-03-02] MEDS: Thiamine Hydrochloride 100 MG Tablet PO ×3 (05:28→20:40)
[2024-03-02] MEDS: Levothyroxine 75 MCG Tablet PO (05:28)
[2024-03-02 05:49] VITALS: BP 124/87; PULSE 60; RESP 16; TEMP 36.6; O2SAT 96
[2024-03-02 06:47] VITALS: BP 124/87
[2024-03-02] MEDS: Clopidogrel Bisulfate 75 MG Tablet PO (08:04)
[2024-03-02] MEDS: Cholecalciferol (VIT D3) 25 MCG TABLET (1,000 UNITS) PO (08:04)
[2024-03-02 08:05] VITALS: BP 124/87; PULSE 60
[2024-03-02] MEDS: Heparin Injection (Vial) 5,000 UNIT/ML VIAL 5000 UNIT SC ×2 (08:05→20:38)
[2024-03-02] MEDS: Magnesium Chloride 64 MG Delay Rel.Tablet 128 MG PO (08:05)
[2024-03-02] MEDS: Potassium Chloride Oral Tablet 20 MEQ PO ×2 (08:05→16:21)
[2024-03-02] MEDS: Metoprolol Tartrate 25 MG Tablet PO ×2 (08:05→20:39)
[2024-03-02] MEDS: Aspirin 81 MG TAB.CHEW PO (08:06)
--- NOTE | 2024-03-02 09:41 | PCM.PROGNOTE ---
Subjective Subjective Afebrile VSS -blood pressure over the past 24 hours has ranged from 126/80 to 137/93. Blood pressure this a.m. is 124/87. Heart rate is within normal limits. Maintaining appropriate oxygen saturation on RA Oral intake - FOOD good FLUIDS poor Discussed with nursing - no problems that need addressed Reviewed the THERAPY notes Medication list reviewed. Hemoccult stool was negative. doing well in therapy. Denies lightheadedness, chest pain, shortness of breath, vertigo, dysphagia, abdominal pain, diarrhea/constipation/nausea/vomiting, dysuria and calf tenderness. Still c.o numbness and tingling in the R hand. I can get my finger between the splint and her arm. the fingers are not really significantly swollen and there is no cyanosis of the nailbeds. she can feel me touch her fingers. Will need to follow up with ortho following DC from rehab. We discussed smoking cessation and alcohol cessation again today. She is still having cravings for cigarettes, even with the nicotine patch. We discussed trying Chantix or Wellbutrin to help suppress cravings. She did not seem interested. Today she tells me that she had not had a alcoholic drink for a few weeks. This number changes frequently. At the initial hospital she said a few days. In the ED at [facility] she admitted to 3 or more drinks a day. Family stated 1 pint every day or 2. Objective Data Objective Data Vital Signs: Vital Signs Temp Pulse Resp BP Pulse Ox O2 Del Method 97.8 F 60 16 124/87 H 96 Room Air 03/02/24 05:49 03/02/24 08:05 03/02/24 05:49 03/02/24 08:05 03/02/24 05:49 03/02/24 05:49 Oxygen Delivery Method Room Air Weight: 136 lb 14.513 oz Body Mass Index (BMI) 25.0 Intake & Output: Intake and Output for Last 24 Hours 02/29/24 03/01/24 03/02/24 23:59 23:59 23:59 Intake Total 650 / 650 940 / 1180 840 / 840 Output Total 650 / 650 1590 / 2390 1100 / 1100 Balance 0 / 0 -650 / -1210 -260 / -260 Lab / Micro Data 03/01/24 06:32 03/03/24 05:49 Labs: Laboratory Results - last 24 hr 03/01/24 06:32: Retic Count 1.26, Immature Retic Fraction 5.70, Retic Hgb Equivalent 36.0 H, Iron 39 L, TIBC 501 H, Iron Saturation 7.8 L, Ferritin 47, Vitamin B12 543, Folate 10.90 Micro: Microbiology 03/02/24 07:40 Stool Stool Occult Blood (MATTHIAS) - Final Physical Exam Const alert and no apparent distress Constitutional Narrative: Flat affect. General Appearance: cooperative and well developed HEENT normocephalic, head/scalp atraumatic, moist oral mucous membranes and oropharynx normal Eyes PERRL and EOMs intact bilaterally Neck no lymphadenopathy and supple Lymph Lymphatic: no lymphadenopathy noted and no lymphedema noted Resp normal respiratory effort, normal air movement and clear to auscultation bilaterally Resp Narrative: No cough with deep breathing Effort and Inspection: Negative for tachypneic Cardio regular rate, regular rhythm, no murmurs, no rub and no gallops Cardio Narrative: Occasional ectopic. When she had the ECHO at [place] the comment was made on the report that she was having a lot of PVC's GI normal to inspection, nondistended, normoactive bowel sounds, soft to palpation and non-tender GI Narrative: No guarding with palpation Extremity no calf tenderness General Extremity: Negative for clubbing, cyanosis or edema Skin General Skin Exam: no breakdown and turgor normal Rashes: no rashes Neuro CN's II-XII intact bilaterally, no focal motor deficits, no sensory deficits noted and deep tendon reflexes 2+ bilaterally Motor Exam: strength 5/5 throughout and general weakness Psych thought process normal and cooperative Appearance: appropriate Assessment & Plan Assessment/Plan (1) Physical debility: (2) Ischemic cerebrovascular accident (CVA): (3) Right sided weakness: (4) Facial droop due to acute cerebrovascular accident (CVA): (5) Hypokalemia: (6) Hyponatremia: (7) Hypomagnesemia: (8) Dehydration: (9) Fall: QUALIFIERS: Encounter type: subsequent encounter Qualified Code(s): W19.XXXD - Unspecified fall, subsequent encounter (10) Closed fracture of fifth metacarpal bone: QUALIFIERS: Encounter type: subsequent encounter Fracture alignment: nondisplaced Laterality: right Metacarpal location: shaft (11) Alcohol abuse: (12) Tobacco dependence: (13) Depression: QUALIFIERS: Depression Type: unspecified Qualified Code(s): F32.A - Depression, unspecified (14) Hyperlipidemia: QUALIFIERS: Hyperlipidemia type: pure hypercholesterolemia Qualified Code(s): E78.00 - Pure hypercholesterolemia, unspecified (15) HTN (hypertension): (16) Noncompliance: PLAN: With medication and physician follow-up. (17) Insomnia: (18) Transaminitis: PLAN: Plan 1. Continue therapy 2. Pt will think about Chantix or Wellbutrin and let me know what she decides. We also once again discussed follow up with one [facility] post DC. 3. Needs follow up with ortho for the metacarpal fracture. 4. Discussed the goals for tx in stroke pt. BP < 130/80, LDL 70 or less, no smoking, HGBA1C 7 or less if diabetic. 5. D/W her the abnormal liver enzymes and suggested she may want to discuss with her PCP or F/U with GI. I recommend the liver be imaged as an OP. Charges/Coding Visit Charges Inpatient E&M: 40801 Subs Hosp L2
[2024-03-02] MEDS: Ferrous Sulfate 325 MG Tablet PO (14:25)
[2024-03-02 17:00] VITALS: BP 133/68; PULSE 76; RESP 16; TEMP 36.5; O2SAT 97
[2024-03-02] MEDS: cycloBENZAPRine HCl 10 MG Tablet PO (19:56)
[2024-03-02] MEDS: Acetaminophen 325 MG Tablet 650 MG PO (19:57)
[2024-03-02 20:39] VITALS: PULSE 70
[2024-03-02] MEDS: Atorvastatin Calcium 40 MG Tablet PO (20:39)
[2024-03-02] MEDS: Mirtazapine 15 MG Tablet PO (20:40)
[2024-03-02 20:45] VITALS: BP 126/84; PULSE 70
[2024-03-03 06:00] VITALS: BP 118/60; PULSE 76; RESP 16; TEMP 36.7; O2SAT 97; BMI 25.0
[2024-03-03 06:29] LABS: Anion Gap 6 (5-15); BUN 13 mg/dL (7-18); BUN/Creat Ratio 19.5 RATIO (10-20); Calcium,Total 9.6 mg/dL (8.5-10.1); Chloride 107 mmol/L (98-107); Creatinine, Serum 0.67 mg/dL (0.55-1.02); EST Glomerular Filtration Rate 95 mL/min (>60); Est Glom Filt Rate - Afr Amer 115 mL/min (>60); Estimated Creatinine Clearance 75.45 ml/min; Glucose 99 mg/dL (74-106); Magnesium 1.9 mg/dL (1.6-2.6); Potassium 3.4 mmol/L (3.5-5.1); Sodium Level 136 mmol/L (136-145)
[2024-03-03] MEDS: Thiamine Hydrochloride 100 MG Tablet PO ×3 (06:48→20:45)
[2024-03-03] MEDS: Levothyroxine 75 MCG Tablet PO (06:48)
[2024-03-03] MEDS: Acetaminophen 325 MG Tablet 650 MG PO ×2 (06:51→20:50)
[2024-03-03 09:04] VITALS: BP 118/60; PULSE 76
[2024-03-03] MEDS: Potassium Chloride Oral Tablet 20 MEQ PO (09:04)
[2024-03-03] MEDS: Cholecalciferol (VIT D3) 25 MCG TABLET (1,000 UNITS) PO (09:04)
[2024-03-03] MEDS: Metoprolol Tartrate 25 MG Tablet PO (09:04)
[2024-03-03] MEDS: Aspirin 81 MG TAB.CHEW PO (09:04)
[2024-03-03] MEDS: Magnesium Chloride 64 MG Delay Rel.Tablet 128 MG PO (09:04)
[2024-03-03] MEDS: Clopidogrel Bisulfate 75 MG Tablet PO (09:04)
[2024-03-03] MEDS: Heparin Injection (Vial) 5,000 UNIT/ML VIAL 5000 UNIT SC ×2 (09:05→20:46)
--- NOTE | 2024-03-03 09:30 | PN_ITS ---
Subjective Subjective Afebrile Fluid intake is improving and yesterday she had 2354 cc in 1800 out for a fluid balance of +554. She is eating well. Continues to complain of difficulty sleeping but this problem has existed for years and she has not sought out treatment. I suspect that chronic depression contributes to not only insomnia but also to her alcohol and smoking addictions. She was started on Remeron 15 mg nightly at admission but this will take a couple weeks to really have a positive effect. Blood pressure this a.m. is 118/60. Will continue to monitor. Heart rate has ranged from 60-76 over the past 24 hours. All lab drawn this morning was personally reviewed. Sodium is up to 136 with discontinuation of hydrochlorothiazide. Potassium is still low at 3.4 following supplementation. The BUN is down to 13 and the creatinine is 0.67. Magnesium is 1.9. Denies lightheadedness, cephalgia, chest pain, sore throat, shortness of breath, nausea/vomiting/abdominal pain, diarrhea/constipation, dysuria and calf tenderness. Objective Data Objective Data Vital Signs: Vital Signs Temp Pulse Resp BP Pulse Ox O2 Del Method 98.0 F 76 16 118/60 97 Room Air 03/03/24 06:00 03/03/24 09:04 03/03/24 06:00 03/03/24 09:04 03/03/24 06:00 03/03/24 06:00 Oxygen Delivery Method Room Air Weight: 137 lb 2.04 oz Body Mass Index (BMI) 25.0 Intake & Output: Intake and Output for Last 24 Hours 03/01/24 03/02/24 03/03/24 23:59 23:59 23:59 Intake Total 940 / 1180 2584 / 2584 610 / 610 Output Total 1590 / 2390 2150 / 2150 750 / 750 Balance -650 / -1210 434 / 434 -140 / -140 Lab / Micro Data 03/01/24 06:32 03/05/24 05:43 Labs: Laboratory Results - last 24 hr 03/03/24 05:49: Sodium 136, Potassium 3.4 L, Chloride 107, Carbon Dioxide 23.0, Anion Gap 6, BUN 13, Creatinine 0.67, Estim Creat Clear Calc 75.45, Est GFR (MDRD) Af Amer 115, Est GFR (MDRD) Non-Af 95, BUN/Creatinine Ratio 19.5, Glucose 99, Calcium 9.6, Magnesium 1.9 Micro: Microbiology 03/02/24 07:40 Stool Stool Occult Blood (MATTHIAS) - Final Physical Exam Const alert and oriented x3 Constitutional Narrative: Seems defensive at times. Avoids eye contact at times. always cooperative with therapy. General Appearance: cooperative HEENT Mouth: dry mucous membranes Resp clear to auscultation bilaterally Resp Narrative: Mildly diminished throughout but, debby in the bases. Cardio regular rate, regular rhythm and no gallops GI normal to inspection, nondistended, normoactive bowel sounds, soft to palpation and non-tender Extremity no calf tenderness General Extremity: Negative for edema Skin General Skin Exam: no breakdown Rashes: no rashes Assessment & Plan Assessment/Plan (1) Physical debility: (2) Ischemic cerebrovascular accident (CVA): (3) Right sided weakness: (4) Facial droop due to acute cerebrovascular accident (CVA): (5) Hypokalemia: (6) Hyponatremia: (7) Hypomagnesemia: (8) Dehydration: (9) Fall: QUALIFIERS: Encounter type: subsequent encounter Qualified Code(s): W19.XXXD - Unspecified fall, subsequent encounter (10) Closed fracture of fifth metacarpal bone: QUALIFIERS: Encounter type: subsequent encounter Metacarpal location: shaft Fracture alignment: nondisplaced Laterality: right (11) Alcohol abuse: (12) Tobacco dependence: (13) Depression: QUALIFIERS: Depression Type: unspecified Qualified Code(s): F32.A - Depression, unspecified (14) Hyperlipidemia: QUALIFIERS: Hyperlipidemia type: pure hypercholesterolemia Q ualified Code(s): E78.00 - Pure hypercholesterolemia, unspecified (15) HTN (hypertension): QUALIFIERS: Hypertension type: primary hypertension Qualified Code(s): I10 - Essential (primary) hypertension (16) Noncompliance: PLAN: With medication and physician follow-up. (17) Insomnia: (18) Transaminitis: (19) Iron deficiency: (20) History of colon polyps: PLAN: Plan 1. Continue therapy 2. Supplement potassium and recheck a BMP on Friday. 3. Needs follow-up as an outpatient for abnormal LFTs. Charges/Coding Visit Charges Inpatient E&M: 47296 Subs Hosp L1
[2024-03-03] MEDS: Potassium Chloride Oral Tablet 20 MEQ 40 MEQ PO (10:46)
[2024-03-03] MEDS: Ferrous Sulfate 325 MG Tablet PO (11:56)
--- NOTE | 2024-03-03 12:15 | DCINST_ITS ---
Discharge Instructions Diet Discharge Diet: - (Low fat and low salt. Salt increases BP and leads to fluid retention. ) Activity Discharge Activity: May Not Drive (May not drive until after you are evaluated and the driving rehab program at [facility] in [place]. ) and - (Use a cane when ambulating. ) Weight Bearing Status: Full weight bearing Keep extremity elevated above heart level: Right Leg Dressing / Incision Call your doctor if you observe: Fever of 101 or Higher, Shortness of breath, Dizziness, Fainting spells, Swelling in the ankles, Chest pain, Calf discomfort, Uncontrolled pain and - (STROKE symptoms: facial droop, slurred speech, inability to get words out, weakness on 1 side of the body and not the other, numbness on 1 side of the body and not the other, inability to maintain your balance sitting or standing, vertigo. ) Follow Up Care Please Follow Up With: Shaniqua Jacob, When: within the next 1-2 weeks. You will also need to follow up with a neurologist for the stroke. and an orthopedic doctor for the fracture of the R hand Test Results: Test results from this visit will be discussed in further detail at your follow- up appointment, if applicable. Pending Tests Upon Discharge: none Discharge Plan Admission Admit Date/Time: 02/29/24 13:31 Primary Reason for Your Visit: Post stroke debility Attending Provider: Tracy Ortega Primary Care Provider: Shaniqua Jacob Instructions Patient Instructions: Quit Smoking Aids Help Kick Habit, Quitting Smoking, Alcohol Addiction, Addiction: Getting Help, Smoking Get Help to Quit, Discharge Instructions for Stroke Additional Instructions / Restrictions: 1. You have been very fortunate. The stroke you had was small and you may recover with no long lasting deficits. Now you need to focus on what you can do to help prevent additional strokes going forward. Smoking is a big risk factor for strokes and other vascular events (such as a heart attack). I am discharging you with a prescription for a nicotine patch. There are other drugs to help people stop smoking if they still have cravings on the nicotine patch. These drugs include Chantix and Wellbutrin. The hospital has a smoking cessation program. If you feel you need additional help to stop smoking call [phone] and ask to be connected to the smoking cessation coordinator. some p[eople have also had success with hypnotism. 2. There are 2 kinds of cholesterol. The good cholesterol in called HDL and in women we like to see the number > 45. Your HDL is excellent at 87. This can help protect the heart. The bad cholesterol is called LDL. Your LDL is high at 160. In patients with strokes or heart attacks the recommendations are to keep the LDL 70 or less. You have been started on a medication called Atorvastatin (also called Lipitor) to bring the LDL down. You will need to have your cholesterol rechecked in another 5-6 weeks to make sure the LDL is 70 or less. You will also need to have liver tests rechecked since Lipitor can cause an increase in the liver enzymes. Dr. Jacob can order a lipid panel and a liver panel for you in 5-6 weeks. 3. You are currently 2 different drugs that help to prevent strokes. They are antiplatelet drugs. Platelets are a component of your blood that helps to form a blood clot if you have a cut or abrasion. The platelets ferguson to the site of the bleeding and form a clump to dam up the hole. Sometimes platelets get sticky inside the blood vessel and make a clump. When a clump of platelets try to go through a small artery they can occlude the blood flow and lead to a stroke. The current recommendations are to use 2 different antiplatelet agents (you are taking aspirin and a drug called Clopidogrel or Plavix) for 3 weeks and then to continue with only a baby aspirin a day. You will discontinue the Clopidogrel after your dose on the 17 of March. After 03/17/24 you will continue taking Aspirin 81 mg daily. 4. Excessive alcohol is also associated with an increased risk of stroke. ANY addiction is hard to quit and we are asking you to stop drinking and smoking to decrease your risk for strokes in the future. You have been drinking and smoking for a long time and so it is not going to be easy to stop cold turkey. There are many places around that can help people with addictions to stop. Many people with addictions have depression or anxiety or both and they drink to make themselves feel better. Some of the symptoms of depression include trouble sleeping, feeling tired all the time, having trouble getting motivated to do things, decreased sex drive, apathy, crying episodes, increased irritability and even thoughts of suicide. Depressed people frequently do not make good eye contact when talking with someone, they have trouble maintaining relationships, they tend to isolate themselves and they quit doing the things that make them happy. I think you are depressed. I started you on an antidepressant called Remeron. You will take this medication at bedtime because it can make you sleepy. It can help with both anxiety and depression. It is hard enough to quit any addiction and being depressed and anxious makes it even harder. there is a program in [place] called [facility] and they help people with addictions and mental illness problems. they have been very successful with many people. There is also a clinic across the street from the hospital called [facility]. They see anyone with or without insurance and they have several nurse practitioners that are certified in treatment of mental health problems and addictions. 5. The lab work shows that some of the tests on your liver are abnormal and then have been abnormal at other times in the recent past. Alcohol is toxic to liver cells and can cause inflammation of the liver cells. Chronic inflammation can lead to scarring/fibrosis of the liver which can then progress to cirrhosis. I reviewed all the XRAY you have had at [facility] and you have never had any imaging of your liver. I recommend that Dr. Jacob order a CT scan of the abdomen to better evaluate the liver. You also have high cholesterol which can lead to fatty infiltration of the liver and to cirrhosis. 6. Your insurance did not give us much time with you. I suspect you will be fine at home. We are going to order home health for you so you can have ongoing PT/OT at discharge. I am recommending that you not drive until your are evaluated at the driving rehabilitation program for people with strokes and other disabilities. We want to make sure your reflexes are good and you will be safe to drive. The psychiatric social worker made a referral to that program for you and it will be good for 3 months. 7. I am putting in an order for a heart monitor that you will wear for a month and then return it to the hospital. After that you will have an appt with a sheet roller operator to review the results. Atrial fibrillation, also called A-fib, is a problem with the rhythm of the heart that leads to the formation of small clots in the heart that then can go to your brain and cause strokes. Atrial fibrillation is more common in people who are heavy drinkers and in people who have a low potassium or low magnesium and their blood. Alcohol in addition to being toxic to the liver is also toxic to other organs including the brain and heart and also the bone marrow. The hydrochlorothiazide (diuretic) you were taking for high blood pressure dropped your sodium, potassium and magnesium levels and major dehydrated. We have discontinued the hydrochlorothiazide and supplemented your potassium and magnesium. Following IV fluids the sodium is now normal and your kidney function is better. I suggest you not use diuretics in the future. 8. you are iron deficient. You are not yet anemic but, the iron in your blood is LOW. Iron is one of the building blocks your bone marrow needs to make new red blood cells. You did not have any blood in the stool when we checked it. I do not know why you are iron deficient. Generally people get iron deficient from chronic blood loss. since you have had colon polyps in the past and it has been more than 10 years since your last colonoscopy you should talk with Dr. Jacob about a referral to have a colonoscopy done. If you have had any vaginal bleeding or blood in the urine you should discuss with Dr. Jacob. I am discharging you on an iron supplement, ferrous sulfate, which you will take once a day with a meal. Iron can cause constipation so you may need to start a stool softener like Metamucil, Citrucel or MiraLAX if you get constipated. 9. Good luck to you in your endeavors to quit smoking and drinking. It is not easy and having a good support system definitely helps. If there is anything I can do to help you with this please let me know. If you or your family have any questions after you leave rehab please do not hesitate to call me. OFFICE: [phone] CELL: [phone] Discharge Orders/Prescriptions Prescriptions: New acetaminophen 325 mg Tablet 650 mg PO Q4H PRN PRN (Reason: Pain Score 1-10) Qty: 1 0RF ferrous sulfate [FeroSul] 325 mg (65 mg iron) Tablet 325 mg PO DAILY@1200 Qty: 90 0RF nicotine 21 mg/24 hr Patch 24 Hour 21 mg transdermal DAILY Qty: 2 0RF Rx Instructions: In 4 weeks start a 14 mg patch for 2 weeks and then decrease to 7 mg patch for 2 weeks mirtazapine 15 mg Tablet 15 mg PO QHS Qty: 30 0RF nicotine 7 mg/24 hr patch 24 hour 1 patch transdermal Q24H Qty: 14 0RF Rx Instructions: start this after you finish the 14 mg patches. nicotine 14 mg/24 hr patch 24 hour 1 patch transdermal DAILY Qty: 14 0RF Continued aspirin 81 MG tablet,chewable 81 mg PO DAILY@0800 Patient Comments: pt forgets to take cholecalciferol (vitamin D3) 1,000 UNIT tablet,chewable 1,000 unit PO DAILY atorvastatin 40 mg tablet 40 mg PO QHS Qty: 30 0RF Rx Instructions: Take this medication at bedtime clopidogrel 75 mg tablet 75 mg PO DAILY Qty: 13 0RF Rx Instructions: You can discontinue this medication after 13 doses. levothyroxine 75 MCG tablet 75 mcg PO DAILY Qty: 30 0RF albuterol sulfate 90 mcg/actuation HFA aerosol inhaler 2 puff INHALATION Q6H PRN (Reason: shortness of breath or wheezing) Qty: 1 0RF Discontinued hydrochlorothiazide 25 MG tablet 25 mg PO DAILY metoprolol tartrate 25 MG tablet 25 mg PO BID cyclobenzaprine 10 mg tablet 10 mg PO TID PRN PRN (Reason: pain) thiamine HCl (vitamin B1) 100 mg tablet 100 mg PO TID Referrals / Follow Up: [facility] [Other] - 04/07/24 9:00 am [facility] [Provider Group] - 03/08/24 9:00 am Shaniqua Jacob DO [Primary Care Provider] - (office is to get percent for visit. If you don't here from than in 1 week call to make appt.) Disposition Disposition (needs filled in before D/C Order can be placed): Home Health Service
--- NOTE | 2024-03-03 15:20 | CASEMGMT ---
Addendum entered by Marah Romano 03/03/24 15:28: requesting [facility] Re[facility] program for pt. ANDERSON to make referral. Original Note: Social Work SW spoke with insurance to clarify LCD. Insurance issued LCD 03/04, DC 03/05. Provided Peer to Peer information to be completed by 1605 this date. ANDERSON spoke with Dr and Dr denied P2P, stating pt can DC home. relayed DC to pt. ANDERSON phoned to update and agreeable. Team meeting will still occur as planned tomorrow, but will be working. Dtr may be present. ANDERSON to finalize DC plans with pt. Plan: DC home with family 03/05, [facility] PT/OT/BRYAN ChamorroW
[2024-03-03 19:00] VITALS: BP 117/71; PULSE 63; RESP 16; TEMP 36.5; O2SAT 95
[2024-03-03 20:45] VITALS: BP 114/68; PULSE 69
[2024-03-03] MEDS: Atorvastatin Calcium 40 MG Tablet PO (20:45)
[2024-03-03] MEDS: Metoprolol(XL)Succ 50 MG Tablet PO (20:45)
[2024-03-04 06:00] VITALS: BP 110/78; PULSE 59; RESP 17; TEMP 36.4; O2SAT 96
[2024-03-04] MEDS: Levothyroxine 75 MCG Tablet PO (06:21)
[2024-03-04] MEDS: Thiamine Hydrochloride 100 MG Tablet PO ×3 (06:21→21:29)
[2024-03-04] MEDS: Acetaminophen 325 MG Tablet 650 MG PO (06:25)
[2024-03-04] MEDS: Cholecalciferol (VIT D3) 25 MCG TABLET (1,000 UNITS) PO (07:46)
[2024-03-04] MEDS: Heparin Injection (Vial) 5,000 UNIT/ML VIAL 5000 UNIT SC ×2 (07:46→21:29)
[2024-03-04] MEDS: Magnesium Chloride 64 MG Delay Rel.Tablet 128 MG PO (07:46)
[2024-03-04] MEDS: Aspirin 81 MG TAB.CHEW PO (07:47)
[2024-03-04] MEDS: Potassium Chloride Oral Tablet 10 MEQ PO (07:47)
[2024-03-04] MEDS: Clopidogrel Bisulfate 75 MG Tablet PO (07:47)
[2024-03-04] MEDS: Ferrous Sulfate 325 MG Tablet PO (12:03)
--- NOTE | 2024-03-04 12:43 | CASEMGMT ---
Social Work IDT met with patient and dtr for Team meeting. Discussed patient's progress in PT/OT/ST/SN. Confirmed [place] [employer] insurance issuing DC 03/05. Pt is discharging home with and dtr. completed [facility] paperwork for dtr to assist pt as needed. Encouraged pt continue with sobriety at home. educated to smoking cessation at [facility]. ANDERSON provided resources on that program, along with transport truck driver's rehab program and mental health counseling. SW provided list of skilled [facility] providers with quality and resource data via [employer]. SW to coordinate PT/OT/SW. Educated to transition to OP therapy after C. SW inquired if pt would like to complete advanced directives today, prior to DC. Pt agreed. SW to follow up and complete. No other issues noted. Plan: DC home with family 03/05, [facility] PT/OT/SW Marah Romano, BRYAN SIGNALING PROJECT ENGINEER
--- NOTE | 2024-03-04 14:14 | CASEMGMT ---
Addendum entered by Marah Romano 03/05/24 14:00: [facility] can accept and is requesting SN added to the order. Dr venegas. Order addendumed. Original Note: Social Work Completed advanced directives with pt. Pt named dtr, Elise Whitten, as primary, and , Mauro Whitten, as secondary. Original and copy provided to pt. Copy placed on chart. Pt chose [facility] as first option, then [facility] and [facility] SW phoned referral to [facility] for PT/OT/SW. Marah Romano, BRYAN YOUNGW
--- NOTE | 2024-03-04 14:43 | PCM.PROGNOTE ---
Subjective Subjective Ifrah was seen on team rounds today. Her daughter Elise was present in the room for rounds. All questions were answered to their satisfaction. Afebrile VSS - Maintaining appropriate oxygen saturation on RA Oral intake - FOOD good FLUIDS good Discussed with nursing - no problems that need addressed. Slept good per nursing last night. Refused Remeron last night. She tells me because she was told by nursing it is a sleeping pill and she has had bad dreams with sleeping pills in the past. I explained that it is an antidepressant and It was started for suspected depression and to help with quitting smoking and drinking. I recommend she try it for 3 months and if no improvement then she can Reviewed the THERAPY notes - was made MOD I in her room yesterday. She was mod I with all ADLs today. Medication list reviewed. Ifrah denies lightheadedness, vertigo, CP, SOB at rest, SOB with exertion, cough, nausea, vomiting, abd pain, diarrhea, constipation, dysuria, calf pain and ankle swelling. Her only complaint is she is not sleeping well. this has been a long time complaint. Objective Data Objective Data Vital Signs: Vital Signs Temp Pulse Resp BP Pulse Ox O2 Del Method 97.5 F L 59 L 17 110/78 96 Room Air 03/04/24 06:00 03/04/24 06:00 03/04/24 06:00 03/04/24 06:00 03/04/24 06:00 03/04/24 06:00 Oxygen Delivery Method Room Air Weight: 137 lb 2.04 oz Body Mass Index (BMI) 25.0 Intake & Output: Intake and Output for Last 24 Hours 03/02/24 03/03/24 03/04/24 23:59 23:59 23:59 Intake Total 2584 / 2584 2050 / 2450 1100 / 1100 Output Total 2150 / 2150 750 / 1050 300 / 300 Balance 434 / 434 1300 / 1400 800 / 800 Lab / Micro Data 03/01/24 06:32 03/05/24 05:43 Micro: Microbiology 03/02/24 07:40 Stool Stool Occult Blood (MATTHIAS) - Final Physical Exam Const alert, oriented x3 and no apparent distress Constitutional Narrative: Making good eye contact with me now. Pleasant and talkative. General Appearance: cooperative, comfortable and well kempt Resp normal respiratory effort and clear to auscultation bilaterally Resp Narrative: Mildly diminished. No conversational dyspnea. Cardio regular rate, regular rhythm, no murmurs, no rub and no gallops Cardio Narrative: No ectopy. Has been in NSR every time I have checked since she arrived on rehab. GI normal to inspection, nondistended, normoactive bowel sounds, soft to palpation and non-tender GI Narrative: No guarding with palpation. No bruits. Extremity no calf tenderness and no pedal edema Skin no wounds General Skin Exam: no breakdown Rashes: no rashes Neuro oriented x3 and moves all extremities Neuro Narrative: Still with a very mild R facial droop No drift of the R leg or arm. No ataxia. Intact sensation. No visual field cuts. No extinction. Psych cooperative Psych Narrative: Affect is no longer flat. She is making good eye contact with me and is more forthcoming when we talk. Engaging well with staff and is talkative and pleasant. No adverse effects with Remeron but, is still not sleeping well. Appearance: appropriate and well kempt Attitude: engaged Speech: normal speech Assessment & Plan Assessment/Plan (1) Physical debility: (2) Ischemic cerebrovascular accident (CVA): (3) Right sided weakness: (4) Facial droop due to acute cerebrovascular accident (CVA): (5) Hypokalemia: (6) Hyponatremia: (7) Hypomagnesemia: (8) Dehydration: (9) Fall: QUALIFIERS: Encounter type: subsequent encounter Qualified Code(s): W19.XXXD - Unspecified fall, subsequent encounter (10) Closed fracture of fifth metacarpal bone: QUALIFIERS: Encounter type: subsequent encounter Metacarpal location: shaft Fracture alignment: nondisplaced Laterality: right (11) Alcohol abuse: (12) Tobacco dependence: (13) Depression: QUALIFIERS: Depression Type: unspecified Qualified Code(s): F32.A - Depression, unspecified (14) Hyperlipidemia: QUALIFIERS: Hyperlipidemia type: pure hypercholesterolemia Qualified Code(s): E78.00 - Pure hypercholesterolemia, unspecified (15) HTN (hypertension): QUALIFIERS: Hypertension type: primary hypertension Qualified Code(s): I10 - Essential (primary) hypertension (16) Noncompliance: PLAN: With medication and physician follow-up. (17) Insomnia: (18) Transaminitis: (19) Iron deficiency: (20) History of colon polyps: PLAN: Plan 1. Plan discharge home tomorrow with [facility] home health care at discharge. 2. Has follow-up scheduled with Ortho for the right fifth metacarpal fracture. 3. Follow-up has been scheduled with Dr. Reina for neurology 4. 30-day event monitor and then follow-up with cardiology 5. Follow-up with PCP within 2 weeks post discharge 6. Once again discussed smoking cessation and alcohol cessation with her. 7. We discussed the problems sleeping and I recommended she continue the Remeron for at least 3 months before deciding to stop it. I do think she is chronically depressed. If she continues to tolerate 15 mg nightly and is still not sleeping would consider increase to 30 mg nightly. Would likely benefit from outpatient psychotherapy. Charges/Coding Visit Charges Inpatient E&M: 90081 Subs Hosp L1
[2024-03-04 17:22] VITALS: BP 121/71; PULSE 65; RESP 16; TEMP 36.7; O2SAT 100
[2024-03-04 21:26] VITALS: BP 126/78; PULSE 74; RESP 16; TEMP 36.7; O2SAT 99
[2024-03-04 21:29] VITALS: BP 126/78; PULSE 74
[2024-03-04] MEDS: Atorvastatin Calcium 40 MG Tablet PO (21:29)
[2024-03-04] MEDS: Mirtazapine 15 MG Tablet PO (21:29)
[2024-03-04] MEDS: Metoprolol(XL)Succ 50 MG Tablet PO (21:29)
[2024-03-05 06:00] VITALS: BP 145/80; PULSE 56; RESP 16; TEMP 36.6; O2SAT 95
[2024-03-05] MEDS: Levothyroxine 75 MCG Tablet PO (06:02)
[2024-03-05] MEDS: Thiamine Hydrochloride 100 MG Tablet PO ×2 (06:02→13:10)
[2024-03-05 06:48] LABS: Anion Gap 6 (5-15); BUN 12 mg/dL (7-18); BUN/Creat Ratio 15.9 RATIO (10-20); Calcium,Total 9.2 mg/dL (8.5-10.1); Chloride 110 mmol/L (98-107); Creatinine, Serum 0.76 mg/dL (0.55-1.02); EST Glomerular Filtration Rate 82 mL/min (>60); Est Glom Filt Rate - Afr Amer 100 mL/min (>60); Estimated Creatinine Clearance 66.57 ml/min; Glucose 90 mg/dL (74-106); Magnesium 2.1 mg/dL (1.6-2.6); Potassium 4.3 mmol/L (3.5-5.1); Sodium Level 140 mmol/L (136-145)
[2024-03-05] MEDS: Potassium Chloride Oral Tablet 10 MEQ PO (08:14)
[2024-03-05] MEDS: Magnesium Chloride 64 MG Delay Rel.Tablet 128 MG PO (08:14)
[2024-03-05] MEDS: Cholecalciferol (VIT D3) 25 MCG TABLET (1,000 UNITS) PO (08:14)
[2024-03-05] MEDS: Heparin Injection (Vial) 5,000 UNIT/ML VIAL 5000 UNIT SC (08:14)
[2024-03-05] MEDS: Clopidogrel Bisulfate 75 MG Tablet PO (08:14)
[2024-03-05] MEDS: Aspirin 81 MG TAB.CHEW PO (08:17)
--- NOTE | 2024-03-05 09:38 | EX.DISCHREH ---
Providers Date of Admission: 02/29/24 Date of Discharge: 03/05/24 Primary Care Physician: Dr. Shaniqua Jacob, DO none Reason For Visit: STROKE Diagnosis Discharge Diagnosis (1) Physical debility: Status: Acute Code(s): R53.81 - Other malaise (2) Ischemic cerebrovascular accident (CVA): Status: Acute Code(s): I63.9 - Cerebral infarction, unspecified Plan: 02/23/24. Brain MRI showed a small acute/subacute infarct in the posterior limb of the left internal capsule. She had right-sided weakness and right facial droop. She is being discharged on ASA, Plavix, Atorvastatin and Metoprolol XL. Plavix will DC after her dose on 03/17/24 and she will continue ASA 81 mg daily. Follow up appt with Dr. Reina from neurology has been scheduled for her. Discussed stroke sx with her and told her to call 911 if she has any of these sx NASH. Smoking cessation counselling given. 30 day event monitor ordered at DC and then she will follow up with cardiology to discuss the results. (3) Right sided weakness: Status: Acute Code(s): R53.1 - Weakness Plan: DC home with [facility] for PT/OT. Using a straight cane for ambulation at the time of DC. BENJAMIN with ADL's. (4) Facial droop due to acute cerebrovascular accident (CVA): Status: Acute Code(s): I63.9 - Cerebral infarction, unspecified; R29.810 - Facial weakness (5) Hypokalemia: Status: Resolved Code(s): E87.6 - Hypokalemia Plan: Secondary to HCTZ. Also with hyponatremia, hypomagnesemia and dehydration. BP well controlled with Metoprolol alone. (6) Hyponatremia: Status: Resolved Code(s): E87.1 - Hypo-osmolality and hyponatremia (7) Hypomagnesemia: Status: Resolved Code(s): E83.42 - Hypomagnesemia (8) Dehydration: Status: Resolved Code(s): E86.0 - Dehydration (9) Fall: Status: Inactive Code(s): W19.XXXA - Unspecified fall, initial encounter Qualifiers: Encounter type: subsequent encounter Qualified Code(s): W19.XXXD - Unspecified fall, subsequent encounter Plan: 8/12/24. Does not know why she fell. Does not think she lost consciousness. (10) Closed fracture of fifth metacarpal bone: Status: Inactive Code(s): S62.308A - Unspecified fracture of other metacarpal bone, initial encounter for closed fracture Qualifiers: Encounter type: subsequent encounter Fracture alignment: nondisplaced Laterality: right Metacarpal location: shaft Plan: Follow up scheduled with [facility] for 03/08/24. (11) Alcohol abuse: Status: Chronic Code(s): F10.10 - Alcohol abuse, uncomplicated Plan: Recommended abstinence. Transaminases have been mildly elevated in the past. Recommended she discuss imaging the liver with an US or CT scan as an OP. (12) Tobacco dependence: Status: Chronic Code(s): F17.200 - Nicotine dependence, unspecified, uncomplicated Plan: Provided with smoking cessation counselling while on rehab. Nicotine patches given at [facility]. Discussed Wellbutrin and Chantix to help her if she continues to have cravings to smoke. Also discussed hypnotism. Told her that she can call the smoking cessation coordinator at [facility] for help with smoking cessation if she desires. (13) Depression: Status: Suspected Code(s): F32.A - Depression, unspecified Qualifiers: Depression Type: unspecified Qualified Code(s): F32.A - Depression, unspecified Plan: Started on Remeron 15 mg. She is tolerating with no adverse side effects. Recommended she consider [facility] for addiction counselling and mental health counselling. She could also follow up at the [facility] for this or with a psychotherapist of her choice close to her home. (14) Hyperlipidemia: Status: Acute Code(s): E78.5 - Hyperlipidemia, unspecified Qualifiers: Hyperlipidemia type: pure hypercholesterolemia Qualified Code(s): E78.00 - Pure hypercholesterolemia, unspecified Plan: She was discharged on Atorvastatin 40 mg Q HS. Will need follow up LFT's and lipid panel in 4 weeks. (15) HTN (hypertension): Status: Chronic Code(s): I10 - Essential (primary) hypertension Qualifiers: Hypertension type: primary hypertension Qualified Code(s): I10 - Essential (primary) hypertension Plan: BP is well controlled with Metoprolol XL 50 mg daily at HS. (16) Noncompliance: Status: Acute Code(s): Z91.199 - Patient's noncompliance with other medical treatment and regimen due to unspecified reason Plan: With medication and physician follow-up. (17) Insomnia: Status: Chronic Code(s): G47.00 - Insomnia, unspecified (18) Transaminitis: Status: Acute Code(s): R74.01 - Elevation of levels of liver transaminase levels (19) Iron deficiency: Status: Chronic Code(s): E61.1 - Iron deficiency (20) History of colon polyps: Status: Chronic Code(s): Z86.010 - Personal history of colonic polyps Plan: It has been over 10 years since her last colonoscopy. Stool was heme negative and she is not anemic but, the % iron saturation is only 7.8% and the SI is low. Ferritin is WNL but, it is likely elevated from inflammation due to acute R 5th metatarsal fx. Additional W/U deferred to PCP. Plan 1. DC home with family. Lives with spouse and dtr who can assist her. FMLA papers completed for dtr Elise. 2. [facility] for PT/OT 3. Follow-up has been scheduled with Dr. Evangelista Reina from neurology on 04/07/2024. 4. She has a follow-up appointment with [facility] on 03/08/2024 for the right fifth metatarsal fracture 5. 30-day event monitor ordered at discharge and then will follow-up with cardiology to discuss the results 6. Alcohol and smoking cessation counselling given while on rehab and RX given for Nicoderm at [facility]. 7. Follow up with Dr. Jacob post [facility]. 8. Needs LFT's and lipid profile in 4 weeks 9. She has mildly elevated transaminases and I recommended she discuss imaging the liver with Dr. Jacob. 10. She is iron deficient and has a hx of colon polyps. Last colonoscopy was > 10 years ago. Denies vaginal bleeding or hematuria. No N/V/epigastric pain. Medications at Discharge Home Medications aspirin 81 mg chewable tablet 81 mg PO DAILY@0800 [facility] 05/21/16 cholecalciferol (vitamin D3) 25 mcg (1,000 unit) chewable tablet 1,000 unit PO DAILY supplement 06/21/16 acetaminophen 325 mg tablet 650 mg (2 x 325 mg) PO Q4H PRN PRN Pain Score 1-10 #1 TAB 03/03/24 albuterol sulfate 90 mcg/actuation aerosol inhaler 2 puff inhalation Q6H PRN shortness of breath or wheezing #1 g 03/03/24 atorvastatin 40 mg tablet 40 mg PO QHS cholesterol #30 tabs 03/03/24 clopidogrel 75 mg tablet 75 mg PO DAILY stroke #13 tabs 03/03/24 ferrous sulfate 325 mg (65 mg iron) tablet (FeroSul) 325 mg PO DAILY@1200 #90 tabs 03/03/24 levothyroxine 75 mcg tablet 75 mcg PO DAILY thyroid #30 tabs 03/03/24 mirtazapine 15 mg tablet 15 mg PO QHS #30 tabs 03/03/24 nicotine 14 mg/24 hr daily transdermal patch 1 patch transdermal DAILY #14 ea 03/03/24 nicotine 21 mg/24 hr daily transdermal patch 21 mg transdermal DAILY #2 ea 03/03/24 nicotine 7 mg/24 hr daily transdermal patch 1 patch transdermal Q24H #14 ea 03/03/24 Hospital Course Operations None Procedures None Summary of Care Provided Minutes Spent on Discharge: 40 Hospital Course: PHILOMENA CONNOLLY, is a 64-year-old F with a past medical history of hypertension, alcohol abuse, tobacco dependence, noncompliance with medication and physician follow up, vitamin D deficiency, hypothyroidism and a recent fall on 02/23/2024 resulting in a a possible hairline fracture of the right fifth metacarpal. She was seen in the [facility] ED on 02/23/24 and given a splint. The following day she presented to the emergency department at [facility] complaining of weakness in the right arm and right leg. CT scan of the head revealed no acute findings. CTA showed no large vessel occlusions or aneurysms. NIHSS was 3 for right arm drift, right leg drift (hit bed). Brain MRI showed a small acute/subacute infarct in the posterior limb of the left internal capsule. She was started on atorvastatin 40 mg for hyperlipidemia and dual antiplatelet agents. Metoprolol and hydrochlorothiazide were restarted....she had been non-compliant with these medications as an OP. Echocardiogram showed a normal-sized ventricle with a 63% EF. There was normal left ventricular diastolic dysfunction. Bubble study was negative for a [id number] shunt. There were no significant valvular abnormalities. LFTs at admission to [facility] 9 showed an elevated AST of 71 with a normal ALT of 35. Alk phos and bilirubin were within normal limits. Transaminases have been mildly elevated at [facility] in the past. The LDL was 160, the HDL was 87 and triglycerides were normal. TSH was normal at 3.2. Hemoglobin A1c was 5.5. Consult was obtained with tele-neurology and dual antiplatelet agents were recommended for 3 weeks and then continue with ASA alone. Goal for BP is < 130/80 and the goal for the LDL is 70 or less. While at [facility] she was seen by PT/OT and a recommendation was made for acute rehab at [facility]. She was transferred to the acute inpt rehab unit at [facility] on 02/29/24 for 3 hours of therapy daily to restore function/independence at or near the level prior to the stroke. At presentation to rehab her NIHSS was a 1 for R facial droop. She had weakness on the R side at admission but, no drift with the R arm or leg. Admitting lab showed a Low sodium at 134, low potassium at 2.9 and a Borderline low magnesium at 1.8. The BUN was 16 with a creat of 0.76 and a BUN/CREAT ratio of 21.2. HCTZ was discontinued and she was given IV NS, potassium and magnesium supplements. BP was well controlled on Metoprolol 25 mg BID. She was later transitioned to Metoprolol XL 50 mg daily at and the BP remained well controlled on 1 agent. On the day of DC the sodium was 140 and the potassium was 4.3. Mag was 2.1 and the BUN was 12 with a stable creat at 0.76. the potassium and magnesium supplements were discontinued. She has a HGB of 12.4 and is not anemic but, review of past labs shows the MCV has been dropping and A CBC at the end of October showed 2+ anisocytosis with 1+ microcytosis and 1+ macrocytosis. Iron studies were checked and SI was low at 39 and TIBC was increased at 501. The % iron saturation was low at 7.8% with normal being 15-55%. She was started on an iron supplement. A Hemoccult stool was negative. She had a colonoscopy over 10 years ago that showed colon polyps. She denied vaginal bleeding and hematuria. She likely needs a repeat colonoscopy. She denies N/V/epigastric pain. She has reflux but, she just avoids the foods that she knows cause her heartburn. she has been on Omeprazole in the past. On exam at admission she was not making good eye contact and her answers to some difficult questions were evasive. She seemed defensive at times. She has suffered from insomnia for several years. Has had some counselling in the past by her services manager. Affect was very flat. She was admitted to [facility] in November for a 3 day stay for alcohol withdrawal and related that she has had withdrawal sx in the past when she tried to stop drinking. She was started on Remeron at night for suspected depression and we discussed the close relationship between addictions and mental illness. I recommended she seek counselling for alcohol addiction and depression post DC form rehab. Affect improved in the short time she was on rehab. she was making much better eye contact and was not as evasive. She was interacting better with staff and she was cooperative with therapy. At the time of DC her MRS (modified [place] score) has decreased from 4 to 2 (slight disability). She has ambulated up to 200 feet on various surfaces at [facility] with a cane. She has been ambulating in her room with a cane and on the rehab floor at [facility] with a cane with no LOB. She is able to do 12 sit to stands in 30 secs pushing up with the left arm. She is independent with eating and modified independent with grooming. She is standby assist for bathing and lower body dressing and supervision/set up for upper body dressing. She is modified independent for toileting and toilet transfer and contact-guard assist for tub/shower transfer. Appointments have been made for her to follow-up with Dr. Evangelista Reina from neurology and [facility] for the fracture of the fifth metatarsal in the right hand. A 30 day event monitor was ordered to r/o AFIB. she will then follow up with cardiology to review the results. She will continue dual antiplatelet agents through 03/17/24 and then discontinue Plavix. She will continue ASA 81 mg daily. She will also continue Atorvastatin and Metoprolol XL. She will need a lipid and liver profile in 4 weeks. Goals for tx are LDL less than or equal to 70, BP < 130/80, smoking cessation. Her HGBA1C is upper limits of normal at 5.5 and her mother was diabetic. Will need monitored periodically. Physical Exam Const alert, oriented x3 and no apparent distress Constitutional Narrative: Making good eye contact with me now. Pleasant and talkative. General Appearance: cooperative, comfortable and well kempt HEENT normocephalic, head/scalp atraumatic and hearing grossly normal bilaterally Eyes PERRL, EOMs intact bilaterally, conjunctivae normal and no scleral icterus Eyes Narrative: No Dc from the eyes and no mattering of the eyelashes. No visual field cuts. General Eye: normal appearance of both eyes Neck supple and no carotid bruits Chest Chest: symmetrical chest wall rise Resp normal respiratory effort and clear to auscultation bilaterally Resp Narrative: Mildly diminished. No conversational dyspnea. Cardio regular rate, regular rhythm, S1 normal heart sound, S2 normal heart sound, no murmurs, no rub and no gallops Cardio Narrative: No ectopy. Has been in NSR every time I have checked since she arrived on rehab. GI normal to inspection, nondistended, normoactive bowel sounds, soft to palpation and non-tender; Negative for hepatosplenomegaly or no masses GI Narrative: No guarding with palpation. No bruits. Extremity no calf tenderness and no pedal edema Extremity Narrative: Subjective numbness in the R middle and ring finger. No significant swelling of the finger of the R hand. The fingers are warm and there is no cyanosis of the nail beds. Skin no wounds, no jaundice and no petechiae General Skin Exam: no breakdown Rashes: no rashes Neuro oriented x3 and moves all extremities Neuro Narrative: Still with a very mild R facial droop No drift of the R leg or arm. No ataxia. Intact sensation. No visual field cuts. No extinction. Psych cooperative Psych Narrative: Affect is no longer flat. She is making good eye contact with me and is more forthcoming when we talk. Engaging well with staff and is talkative and pleasant. No adverse effects with Remeron but, is still not sleeping well. Appearance: appropriate and well kempt Attitude: engaged Speech: normal speech Weight / BMI Weight Weight: 137 lb 2.04 oz Body Mass Index (BMI) 25.0 ABG / Lab / Microbiology Data 03/01/24 06:32 03/05/24 05:43 Laboratory: Laboratory Results - last 24 hr 03/05/24 05:43: Sodium 140, Potassium 4.3, Chloride 110 H, Carbon Dioxide 24.0, Anion Gap 6, BUN 12, Creatinine 0.76, Estim Creat Clear Calc 66.57, Est GFR (MDRD) Af Amer 100, Est GFR (MDRD) Non-Af 82, BUN/Creatinine Ratio 15.9, Glucose 90, Calcium 9.2, Magnesium 2.1 Microbiology: Microbiology 03/02/24 07:40 Stool Stool Occult Blood (MATTHIAS) - Final Indicators for Scoring Admitted with or Primary Diagnosis of CVA/Stroke: Yes Hx of CVA/Stroke: Yes Modified Lizandro Score MRS Score at time of Evaluation: 2-Slight disability NIHSS NIHSS 1a. Level of Consciousness: Alert; keenly responsive 1b. LOC Questions: Answers BOTH questions correctly. 1c. LOC Commands: Performs both tasks correctly. 2. Best Gaze: Normal 3. Visual: No visual loss 4. Facial Palsy: Minor paralysis (flattened nasolabial fold, asymmetry on smiling) 5a. Left Arm: No drift; arm holds 90 (or 45) degrees for full 10 seconds 5b. Right Arm: No drift; arm holds 90 (or 45) degrees for full 10 seconds 6a. Left Leg: No drift; leg holds 30-degree position for full 5 seconds 6b. Right Leg: No drift; leg holds 30-degree position for full 5 seconds 7. Limb Ataxia: Absent 8. Sensory: Normal; no sensory loss 9. Best Language: No aphasia; normal 10. Dysarthria: Normal 11. Extinction and Inattention: No abnormality Total: 1 Stroke Questions Stroke Team Activated: No D/C Instructions Discharge Diet: - (Low fat and low salt. Salt increases BP and leads to fluid retention. ) Weight Bearing Status: Full weight bearing Keep extremity elevated above heart level: Right Leg Call your doctor if you observe: Fever of 101 or Higher, Shortness of breath, Dizziness, Fainting spells, Swelling in the ankles, Chest pain, Calf discomfort, Uncontrolled pain and - (STROKE symptoms: facial droop, slurred speech, inability to get words out, weakness on 1 side of the body and not the other, numbness on 1 side of the body and not the other, inability to maintain your balance sitting or standing, vertigo. ) Pending Tests Upon Discharge: none Please Follow Up With: Shaniqua Jacob DO When: within the next 1-2 weeks. You will also need to follow up with a neurologist for the stroke. and an orthopedic doctor for the fracture of the R hand Meaningful Use Info Meaningful Use Meaningful Use Diagnoses (Choose all that apply): Ischemic CVA CVA Therapy Assessed for PT,OT and/or ST?: Yes Ischemic Stroke Antithrombotic order at d/c?: Yes Dx of Atrial fib/flutter?: No Reason anticoagulant not ordered: Treatment not Indicated Statin Dosing Therapy Reference: STATIN DOSE THERAPY REFERENCE: * Patients > 75 years receive moderate or high dose statin therapy. * Patients 75 years or YOUNGER should receive HIGH intensity statin dose unless contraindicated. You will be required to document reason for non-treatment if statin daily dose does not meet guidelines. HIGH DOSE STATIN THERAPY DAILY Atorvastatin > than or = to 40 mg Rosuvastatin > than or = to 20 mg Amlodipine + Atorvastatin > than or = to 2.5/40 mg Ezetimibe + Simvastatin 10/80 mg Simvastatin 80mg Statins at discharge?: Yes If patient is 75 or younger, pt will be discharged on HIGH intensity statin.: Yes Primary Dx Acute Ischemic CVA?: Yes IV thrombolytic ordered during stay?: No Reason IV thrombolytic not ordered: Procedure not Indicated Discharge Plan Admission Admit Date/Time: 02/29/24 13:31 Primary Reason for Your Visit: Post stroke debility Attending Provider: Tracy Ortega Primary Care Provider: Shaniqua Jacob Instructions Patient Instructions: Quit Smoking Aids Help Kick Habit, Quitting Smoking, Alcohol Addiction, Addiction: Getting Help, Smoking Get Help to Quit, Discharge Instructions for Stroke Additional Instructions / Restrictions: 1. You have been very fortunate. The stroke you had was small and you may recover with no long lasting deficits. Now you need to focus on what you can do to help prevent additional strokes going forward. Smoking is a big risk factor for strokes and other vascular events (such as a heart attack). I am discharging you with a prescription for a nicotine patch. There are other drugs to help people stop smoking if they still have cravings on the nicotine patch. These drugs include Chantix and Wellbutrin. The hospital has a smoking cessation program. If you feel you need additional help to stop smoking call [phone] and ask to be connected to the smoking cessation coordinator. some p[eople have also had success with hypnotism. 2. There are 2 kinds of cholesterol. The good cholesterol in called HDL and in women we like to see the number > 45. Your HDL is excellent at 87. This can help protect the heart. The bad cholesterol is called LDL. Your LDL is high at 160. In patients with strokes or heart attacks the recommendations are to keep the LDL 70 or less. You have been started on a medication called Atorvastatin (also called Lipitor) to bring the LDL down. You will need to have your cholesterol rechecked in another 5-6 weeks to make sure the LDL is 70 or less. You will also need to have liver tests rechecked since Lipitor can cause an increase in the liver enzymes. Dr. Jacob can order a lipid panel and a liver panel for you in 5-6 weeks. 3. You are currently 2 different drugs that help to prevent strokes. They are antiplatelet drugs. Platelets are a component of your blood that helps to form a blood clot if you have a cut or abrasion. The platelets ferguson to the site of the bleeding and form a clump to dam up the hole. Sometimes platelets get sticky inside the blood vessel and make a clump. When a clump of platelets try to go through a small artery they can occlude the blood flow and lead to a stroke. The current recommendations are to use 2 different antiplatelet agents (you are taking aspirin and a drug called Clopidogrel or Plavix) for 3 weeks and then to continue with only a baby aspirin a day. You will discontinue the Clopidogrel after your dose on the 17 of March. After 03/17/24 you will continue taking Aspirin 81 mg daily. 4. Excessive alcohol is also associated with an increased risk of stroke. ANY addiction is hard to quit and we are asking you to stop drinking and smoking to decrease your risk for strokes in the future. You have been drinking and smoking for a long time and so it is not going to be easy to stop cold turkey. There are many places around that can help people with addictions to stop. Many people with addictions have depression or anxiety or both and they drink to make themselves feel better. Some of the symptoms of depression include trouble sleeping, feeling tired all the time, having trouble getting motivated to do things, decreased sex drive, apathy, crying episodes, increased irritability and even thoughts of suicide. Depressed people frequently do not make good eye contact when talking with someone, they have trouble maintaining relationships, they tend to isolate themselves and they quit doing the things that make them happy. I think you are depressed. I started you on an antidepressant called Remeron. You will take this medication at bedtime because it can make you sleepy. It can help with both anxiety and depression. It is hard enough to quit any addiction and being depressed and anxious makes it even harder. there is a program in [place] called [facility] and they help people with addictions and mental illness problems. they have been very successful with many people. There is also a clinic across the street from the hospital called [facility]. They see anyone with or without insurance and they have several nurse practitioners that are certified in treatment of mental health problems and addictions. 5. The lab work shows that some of the tests on your liver are abnormal and then have been abnormal at other times in the recent past. Alcohol is toxic to liver cells and can cause inflammation of the liver cells. Chronic inflammation can lead to scarring/fibrosis of the liver which can then progress to cirrhosis. I reviewed all the XRAY you have had at [facility] and you have never had any imaging of your liver. I recommend that Dr. Jacob order a CT scan of the abdomen to better evaluate the liver. You also have high cholesterol which can lead to fatty infiltration of the liver and to cirrhosis. 6. Your insurance did not give us much time with you. I suspect you will be fine at home. We are going to order home health for you so you can have ongoing PT/OT at discharge. I am recommending that you not drive until your are evaluated at the driving rehabilitation program for people with strokes and other disabilities. We want to make sure your reflexes are good and you will be safe to drive. The social science professor made a referral to that program for you and it will be good for 3 months. 7. I am putting in an order for a heart monitor that you will wear for a month and then return it to the hospital. After that you will have an appt with a c architect to review the results. Atrial fibrillation, also called A-fib, is a problem with the rhythm of the heart that leads to the formation of small clots in the heart that then can go to your brain and cause strokes. Atrial fibrillation is more common in people who are heavy drinkers and in people who have a low potassium or low magnesium and their blood. Alcohol in addition to being toxic to the liver is also toxic to other organs including the brain and heart and also the bone marrow. The hydrochlorothiazide (diuretic) you were taking for high blood pressure dropped your sodium, potassium and magnesium levels and major dehydrated. We have discontinued the hydrochlorothiazide and supplemented your potassium and magnesium. Following IV fluids the sodium is now normal and your kidney function is better. I suggest you not use diuretics in the future. 8. you are iron deficient. You are not yet anemic but, the iron in your blood is LOW. Iron is one of the building blocks your bone marrow needs to make new red blood cells. You did not have any blood in the stool when we checked it. I do not know why you are iron deficient. Generally people get iron deficient from chronic blood loss. since you have had colon polyps in the past and it has been more than 10 years since your last colonoscopy you should talk with Dr. Jacob about a referral to have a colonoscopy done. If you have had any vaginal bleeding or blood in the urine you should discuss with Dr. Jacob. I am discharging you on an iron supplement, ferrous sulfate, which you will take once a day with a meal. Iron can cause constipation so you may need to start a stool softener like Metamucil, Citrucel or MiraLAX if you get constipated. 9. Good luck to you in your endeavors to quit smoking and drinking. It is not easy and having a good support system definitely helps. If there is anything I can do to help you with this please let me know. If you or your family have any questions after you leave rehab please do not hesitate to call me. OFFICE: [phone] CELL: [phone] Discharge Orders/Prescriptions Prescriptions: New acetaminophen 325 mg Tablet 650 mg PO Q4H PRN PRN (Reason: Pain Score 1-10) Qty: 1 0RF ferrous sulfate [FeroSul] 325 mg (65 mg iron) Tablet 325 mg PO DAILY@1200 Qty: 90 0RF nicotine 21 mg/24 hr Patch 24 Hour 21 mg transdermal DAILY Qty: 2 0RF Rx Instructions: In 4 weeks start a 14 mg patch for 2 weeks and then decrease to 7 mg patch for 2 weeks mirtazapine 15 mg Tablet 15 mg PO QHS Qty: 30 0RF nicotine 7 mg/24 hr patch 24 hour 1 patch transdermal Q24H Qty: 14 0RF Rx Instructions: start this after you finish the 14 mg patches. nicotine 14 mg/24 hr patch 24 hour 1 patch transdermal DAILY Qty: 14 0RF Continued aspirin 81 MG tablet,chewable 81 mg PO DAILY@0800 Patient Comments: pt forgets to take cholecalciferol (vitamin D3) 1,000 UNIT tablet,chewable 1,000 unit PO DAILY atorvastatin 40 mg tablet 40 mg PO QHS Qty: 30 0RF Rx Instructions: Take this medication at bedtime clopidogrel 75 mg tablet 75 mg PO DAILY Qty: 13 0RF Rx Instructions: You can discontinue this medication after 13 doses. levothyroxine 75 MCG tablet 75 mcg PO DAILY Qty: 30 0RF albuterol sulfate 90 mcg/actuation HFA aerosol inhaler 2 puff INHALATION Q6H PRN (Reason: shortness of breath or wheezing) Qty: 1 0RF Discontinued hydrochlorothiazide 25 MG tablet 25 mg PO DAILY metoprolol tartrate 25 MG tablet 25 mg PO BID cyclobenzaprine 10 mg tablet 10 mg PO TID PRN PRN (Reason: pain) thiamine HCl (vitamin B1) 100 mg tablet 100 mg PO TID Referrals / Follow Up: [facility] [Other] - 04/07/24 9:00 am [facility] [Provider Group] - 03/08/24 9:00 am Shaniqua Jacob DO [Primary Care Provider] - (office is to get percent for visit. If you don't here from than in 1 week call to make appt.) Disposition Disposition (needs filled in before D/C Order can be placed): Home Health Service Charges/Coding Visit Charges Inpatient E&M: 65779 Disch Hosp >30min
[2024-03-05] MEDS: Ferrous Sulfate 325 MG Tablet PO (12:34)
--- NOTE | 2024-03-05 13:30 | NURSING ---
DC instruct with daughter and patient and verbalized understanding.
== END 2024-03-05 13:30 | disposition home health service (06) | DRG 57 ==
PROVIDERS: Admitting Provider Internal Medicine; PCP Family Medicine; Visit Provider Internal Medicine
DX: I69.351 Hemiplegia and hemiparesis following cerebral infarction affecting right dominant side (principal); E87.1 Hypo-osmolality and hyponatremia; F10.10 Alcohol abuse, uncomplicated; F32.A Depression, unspecified; I10 Essential (primary) hypertension; E03.9 Hypothyroidism, unspecified; I69.392 Facial weakness following cerebral infarction; E86.0 Dehydration; E78.00 Pure hypercholesterolemia, unspecified; E87.6 Hypokalemia; E55.9 Vitamin D deficiency, unspecified; F17.210 Nicotine dependence, cigarettes, uncomplicated; W19.XXXD Unspecified fall, subsequent encounter; E61.1 Iron deficiency; S92.351D Displaced fracture of fifth metatarsal bone, right foot, subsequent encounter for fracture with routine healing; Z86.010 Personal history of colon polyps; Z79.82 Long term (current) use of aspirin; G47.00 Insomnia, unspecified; Z91.148 Patient's other noncompliance with medication regimen for other reason; Z79.899 Other long term (current) drug therapy; Z79.890 Hormone replacement therapy; R35.1 Nocturia
CPT/HCPCS: 36415; 80048; 80053; 82274; 82607; 82728; 82746; 83540; 83550; 83735; 84100; 85027; 85045; 92523; 94668; 97110; 97112; 97129; 97130; 97162; 97166; 97530; 97535; 97802